=== PATIENT | female | born 1950 | race Caucasian/White ===

== ENCOUNTER 2019-10-12 10:55 | Outpatient (CLI) | payer MEDICARE, OTHER, SELFPAY ==
--- NOTE | ~2019-10-12 | MR_ITS ---
EXAMINATION: MR lumbar spine wo con DATE: 10/12/2019 11:47 INDICATION: Lumbar radiculopathy. TECHNIQUE: Magnetic resonance imaging (MRI) of the lumbar spine was performed without intravenous con trast. Sequences included sagittal T2-weighted FSE, sagittal T2-weighted FS FSE, sagittal T1-weighted FSE, and axial T2-weighted FSE. COMPARISON: Lumbar spine radiographs 04/27/2018 FINDINGS: There is 3 mm retrolisthesis of L2 on L3, L3 on L4, and L4 on L5. Vertebral body heights ar e normal. There is mildly decreased disc height from L2-L3 through L4-L5. The distal spinal cord sign al intensity is normal. The conus medullaris is at L1-L2. The following disc levels are specifically discussed: L1-L2: The disc does not extend beyond the endplate margin. There is mild bilateral facet joint osteo arthritis. There is no neural foraminal stenosis. There is no central canal stenosis. L2-L3: The disc is bulging. There is mild bilateral facet joint osteoarthritis. There is mild bilater al neural foraminal stenosis. There is mild central canal stenosis. L3-L4: The disc is bulging. There is mild bilateral facet joint osteoarthritis. There is mild right a nd moderate left neural foraminal stenosis. There is mild central canal stenosis. L4-L5: The disc is bulging. There is moderate bilateral facet joint osteoarthritis. There is moderate bilateral neural foraminal stenosis. There is mild central canal stenosis. L5-S1: The disc is bulging. There is severe bilateral facet joint osteoarthritis. There is mild bilat eral neural foraminal stenosis. There is no central canal stenosis. IMPRESSION: 1. Moderate lumbar spondylosis. Reviewed, dictated and finalized at location A.
== END 2019-10-12 10:56 | disposition home or self-care (01) ==
PROVIDERS: PCP Family Medicine; Visit Provider Chiropractor
DX: M47.27 Other spondylosis with radiculopathy, lumbosacral region (principal); M47.896 Other spondylosis, lumbar region
CPT/HCPCS: 72148

== ENCOUNTER 2020-01-24 17:27 | Outpatient (CLI) | payer MEDICARE, OTHER, SELFPAY ==
--- NOTE | ~2020-01-24 | XR_ITS ---
EXAMINATION: XR chest 2V EXAM DATE: 01/24/2020 17:49 INDICATION: Cough, shortness of breath. Hypertension. TECHNIQUE: Frontal and lateral projections of the chest obtained and reviewed. Comparison is made to prior examination from 06/05/2013. FINDINGS: The lungs are clear. There are no pleural effusions. The cardiomediastinal silhouette is within normal limits. There is no pneumothorax suspected. The bones and soft tissues are unremarkab le. IMPRESSION: No acute cardiopulmonary findings. Reviewed, dictated and finalized at location A. 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
== END 2020-01-24 17:28 | disposition home or self-care (01) ==
PROVIDERS: PCP Family Medicine; Visit Provider Family Medicine
DX: R05 Cough (principal); R06.02 Shortness of breath; I10 Essential (primary) hypertension
CPT/HCPCS: 71046

== ENCOUNTER 2020-10-14 12:55 | Outpatient (CLI) | payer MEDICARE, OTHER, SELFPAY ==
--- NOTE | ~2020-10-14 | XR_ITS ---
EXAMINATION: XR pelvis min 3V DATE: 10/14/2020 13:12 INDICATION: Sacroiliac joint fusion. TECHNIQUE: 3 views of the pelvis were obtained. COMPARISON: Pelvis radiograph 01/28/2017 FINDINGS: There is 3 degrees dextrocurvature of lumbar spine. There is mild lumbar spondylosis. There is mild osteoarthritis of the hips and left sacroiliac joint. There is a fusion procedure of right s acroiliac joint with 3 implants. IMPRESSION: 1. Right sacroiliac joint arthrodesis. Reviewed, dictated and finalized at location A.
== END 2020-10-14 12:56 | disposition home or self-care (01) ==
LOC: ANHIMG 12:59
PROVIDERS: PCP Family Medicine; Visit Provider Neurological Surgery
DX: Z98.1 Arthrodesis status (principal)
CPT/HCPCS: 72190

== ENCOUNTER 2020-11-13 14:09 | Outpatient (CLI) | payer MEDICARE, OTHER, SELFPAY ==
--- NOTE | ~2020-11-13 | XR_ITS ---
XR ankle RT min 3V DATE: 11/13/2020 14:27 INDICATION: Right ankle pain TECHNIQUE: 4 views COMPARISON: None FINDINGS: No fracture or dislocation of the ankle or disruption of the ankle mortise. No periosteal r eaction or bone destruction. Plantar calcaneal enthesopathy. Small calcifications are noted posterior to the calcaneus. IMPRESSION: Plantar calcaneal enthesopathy Reviewed, dictated and finalized at location A.
== END 2020-11-13 14:10 | disposition home or self-care (01) ==
PROVIDERS: PCP Family Medicine; Visit Provider Physician Assistant
DX: M77.31 Calcaneal spur, right foot (principal)
CPT/HCPCS: 73610

== ENCOUNTER 2021-05-09 11:11 | Outpatient (CLI) | payer MEDICARE, OTHER, SELFPAY ==
--- NOTE | ~2021-05-09 | XR_ITS ---
EXAMINATION: XR pelvis min 3V DATE: 05/09/2021 11:48 INDICATION: Right sacroiliac joint fusion procedure. Postop. TECHNIQUE: 4 views of the pelvis were obtained. COMPARISON: Pelvis radiographs 10/14/20 FINDINGS: There is dextrocurvature and mild spondylosis of lumbar spine. No fracture. There are magaña es of arthrodesis of right sacroiliac joint with 3 implants. No significant lucency to suggest loosen ing. There is mild left sacroiliac joint osteoarthritis. There is mild osteoarthritis of the hips. IMPRESSION: 1. Right sacroiliac joint arthrodesis. Reviewed, dictated and finalized at location A.
== END 2021-05-09 11:12 | disposition home or self-care (01) ==
PROVIDERS: PCP Family Medicine; Visit Provider Neurological Surgery
DX: Z98.1 Arthrodesis status (principal)
CPT/HCPCS: 72190

== ENCOUNTER 2021-06-16 11:19 | Emergency (ER) | payer MEDICARE, OTHER, SELFPAY ==
--- NOTE | ~2021-06-16 | XR_ITS ---
EXAMINATION: XR chest 2V DATE: 06/16/2021 11:55 INDICATION: Cough TECHNIQUE: PA and lateral views of the chest are obtained. COMPARISON: 01/24/2020 FINDINGS: The lungs are free of acute opacities. There is no pleural effusion or pneumothorax. The ca rdiomediastinal silhouette is normal. There is mild thoracic spondylosis. Calcified pulmonary nodules and calcified left hilar and mediastinal lymph nodes are consistent with old granulomatous disease. IMPRESSION: 1. No acute cardiopulmonary abnormality. Reviewed, dictated and finalized at location A.
[2021-06-16 11:30] VITALS: BP 121/102; PULSE 71; RESP 20; TEMP 36.7; O2SAT 98
--- NOTE | 2021-06-16 11:46 | ED.URI ---
HPI - URI/Sore Throat General Chief Complaint: Upper Respiratory Infection Stated Complaint: cough Time Seen by Provider: 06/16/21 11:46 Source: patient Mode of arrival: ambulatory Limitations: no limitations History of Present Illness HPI Narrative: 71-year-old female who presents with complaint of cough for the past 3 to 4 months. Reports that it started with COVID in February and never improved. Did see her PCP and was given an Advair inhaler and cough syrup with codeine. States that cough is worse at night and with activity. Over the last few days cough has increased. Does have coughing fits that cause her to feel short of breath. Called her PCP today for appointment and was not able to see her. She is afebrile. Does take daily allergy medication. Using Advair without relief. She reports that she has never had a chest x-ray since cough for started. All systems reviewed and negative except as noted above. Related Data Home Medications Medication Instructions Recorded Confirmed gabapentin 300 mg capsule 300 mg PO BID 09/09/20 06/16/21 Allergies Allergy/AdvReac Type Severity Reaction Status Date / Time No Known Allergies Allergy Unknown Verified 06/16/21 11:35 Review of Systems Review of Systems: CONSTITUTIONAL: Denies fever, chills, or sweats. EYES: Denies visual changes, redness, or discharge. ENT: Denies rhinorrhea, congestion, sore throat, or otalgia. CARDIOVASCULAR: Denies chest pain, palpitations, or edema. RESPIRATORY: Reports cough and dyspnea with exertion. GASTROINTESTINAL: Denies abdominal pain, nausea, vomiting, or diarrhea. GENITOURINARY: Denies dysuria or hematuria. SKIN: Denies rash or itching. MUSCULOSKELETAL: Denies back pain, joint pain, or myalgia. NEUROLOGIC: Denies headache, numbness, or weakness. PSYCHIATRIC: Denies anxiety or depression. All other systems reviewed are negative, except as documented in HPI. [facility] Past Medical History Medical History COVID-19 Depressive disorder, not elsewhere classified Hypertension Hypothyroidism (acquired) Melanoma of skin, site unspecified Obese Sacroiliac dysfunction Ureteral calculi Surgical History Surgical History H/O arthroscopy of knee Status post right partial knee replacement (~01/03/18) Family History Family History Mother Hypertension COVID-19 Father Hypertension Family history of lung cancer Family history of malignant neoplasm Grandparent Family history of cardiovascular disease Carcinoma of colon Family history of malignant neoplasm of esophagus Sibling Family history of rheumatoid arthritis Family history of obesity Family history of mental disorder Social History Social History (Updated 05/09/21 @ 09:30 by KEERTHI Barrow) Smoking end date: 02/08/95 Alcohol intake: current Gender identity (if verbalized by the patient): Female Comments At time of signature, agree with nursing past medical, surgical, social and family history. There is no relevant family history pertinent to the presenting complaint. Exam Narrative: GENERAL: This is a well-nourished, well-developed patient, in no apparent distress. HEAD: normocephalic, atraumatic. EYES: PERRL. Sclera clear/white. Vision is grossly intact. EARS: External ears normal, auditory canals clear and without drainage, TMs normal without perforation. Hearing grossly intact. NOSE: External nose normal with no obvious nasal discharge, nares without redness, no rhinorrhea. THROAT: Mucous membranes moist, no erythema to posterior pharynx, clear postnasal drainage noted. NECK: Neck supple, non-tender without lymphadenopathy, masses or thyromegaly. CARDIOVASCULAR: Regular rate and rhythm without murmurs, gallops, or rubs. RESPIRATORY: Decreased throughout all lung painter. SKIN: warm,
== END 2021-06-16 12:40 | disposition home or self-care (01) ==
PROVIDERS: Emergency Provider Nurse Practitioner Family; PCP Family Medicine
DX: R05.9 Cough, unspecified (principal); I10 Essential (primary) hypertension; E03.9 Hypothyroidism, unspecified; Z87.891 Personal history of nicotine dependence
CPT/HCPCS: 71046; 99213; G0463

== ENCOUNTER 2021-07-18 08:08 | Outpatient (CLI) | payer MEDICARE, OTHER, SELFPAY ==
--- NOTE | ~2021-07-18 | CT_ITS ---
EXAMINATION: CT diagnostic chest wo con DATE: 07/18/2021 09:52 INDICATION: Chronic cough. Shortness of breath. Covid infection in February. TECHNIQUE: Computed tomography (CT) of the chest was performed without intravenous contrast. Automate d exposure control and iterative reconstruction technique were employed. Exam dose: 239.90 mGy-cm to [place] exam DLP. COMPARISON: 06/26/2021 2 view chest FINDINGS: Heart size is within normal limits. No pericardial or pleural effusion. No thoracic aortic aneurysm. No hilar or mediastinal mass lesion or lymphadenopathy. There are calcif ied left hilar and mediastinal nodes and calcified left upper lobe pulmonary granulomas, consistent w ith old pulmonary granulomatous disease. No pulmonary infiltrate or consolidation or pulmonary mass lesion is detected. Occasional hepatic and splenic calcified pulmonary granulomas. There are multiple gallstones. No pericholecystic fluid or fat stranding. Normal morphology of the adrenal glands. 3 mm nonobstructing left renal calculus. No suspicious osteolytic or osteoblastic lesions. Degenerative spurring of the thoracic spine. IMPRESSION: Old granulomatous disease Cholelithiasis 3 mm nonobstructing left renal calculus Reviewed, dictated and finalized at Location A. Reviewed, dictated and finalized at location A.
--- NOTE | 2021-07-18 13:26 | WPDSIXMINUTE ---
Six Minute Walk Procedure Procedure Performed Pulmonary Stress Test (6 min walk) Six Minute Walk Six Minute Walk: This 6 minute walk test was carried out with the patient breathing ambient air. The pre walk oxyhemoglobin saturation was 91%. The patient walked over 396 m with no stops during testing. During the walk the oxyhemoglobin saturation remained 92% or higher. The perceived dyspnea on the Colin scale was 2 at baseline and increased to 4 at the end of the testing. Impression: No evidence of oxyhemoglobin desaturation on this testing.
--- NOTE | 2021-07-18 13:28 | WPDPFTINT ---
PFT Procedure Performed PFT Procedure Performed Spirometry with Pre/Post Bronchodilator Plethysmography (Lung Vol) Diffusing Cap (DLCO) Flow Vol Loop PFT Interpretation Lung volumes were measured with the body plethysmography method. The diminished lung volumes are indicative of mild restrictive respiratory disease. Spirometry showed normal expiratory flow rates and a normal FEV1 to FVC ratio of 80%. Following administration of a bronchodilator there was no significant increase in expiratory flow rates. The flow volume loop is unremarkable. Lung diffusion capacity is normal at 77% predicted. Overall the pulmonary function testing is compatible with obesity. Clinical correlation advised. Impression: Mild restrictive respiratory disease. Lung diffusion capacity within the normal range.
== END 2021-07-18 08:09 | disposition home or self-care (01) ==
PROVIDERS: PCP Family Medicine; Visit Provider Nurse Practitioner Family
DX: R06.02 Shortness of breath (principal); R05.3 Chronic cough; Z86.16 Personal history of COVID-19; K80.20 Calculus of gallbladder without cholecystitis without obstruction; N20.0 Calculus of kidney; R91.8 Other nonspecific abnormal finding of lung field; J98.9 Respiratory disorder, unspecified
CPT/HCPCS: 71250; 94060; 94618; 94726; 94729

== ENCOUNTER 2022-03-11 17:31 | Outpatient (CLI) | payer MEDICARE, SELFPAY ==
--- NOTE | ~2022-03-11 | XR_ITS ---
AP view of the pelvis and AP and lateral views of the right hip Clinical history: Pain COMPARISON: 05/09/2021 Findings: No acute fracture or dislocation is seen. Stable orthopedic hardware traversing the right S I joint. Osseous alignment is anatomic. Bilateral hip and SI joint spaces are preserved. Soft tissues are unremarkable. Impression: No acute abnormality is seen. Stable orthopedic hardware traversing the right SI joint. Reviewed, dictated and finalized at location M. CIDE DETECTIVE Impression: No acute abnormality is seen. Stable orthopedic hardware traversing the right SI joint.
== END 2022-03-11 17:32 | disposition home or self-care (01) ==
PROVIDERS: PCP Family Medicine; Visit Provider Family Medicine
DX: M25.551 Pain in right hip (principal); M53.3 Sacrococcygeal disorders, not elsewhere classified; W19.XXXA Unspecified fall, initial encounter
CPT/HCPCS: 73502

== ENCOUNTER 2023-03-02 13:24 | Outpatient (CLI) | payer MEDICARE, SELFPAY ==
--- NOTE | 2023-03-02 13:39 | ECG_ITS ---
Measurements Intervals Bradley Rate: 59 P: 50 DE: 182 QRS: -15 QRSD: 90 T: 38 QT: 429 QTc: 427 Interpretive Statements SINUS BRADYCARDIA ATRIAL PREMATURE COMPLEX LOW QRS VOLTAGE IN PRECORDIAL LEADS INFERIOR INFARCT, AGE INDETERMINATE ANTEROLATERAL INFARCT, AGE INDETERMINATE BASELINE ARTIFACT- I, III, AVR, AVL ABNORMAL ECG NO PREVIOUS ECG AVAILABLE FOR COMPARISON Electronically Signed On 03-02-2023 13:54:40 [facility] by Valdemar Griffin D.O.
[2023-03-02 14:36] LABS: Alanine Aminotransferase 17 U/L (6-35); Albumin Level 4.5 g/dL (3.5-5.1); Alkaline Phosphatase 53 U/L (38-126); Amylase 99 U/L (30-110); Anion Gap 10 mmol/L (8-16); Aspartate Amino Transferase 24 U/L (14-36); Blood Urea Nitrogen 19 mg/dL (7-17); Carbon Dioxide 30 mmol/L (22-30); Chloride 97 mmol/L (98-107); Estimated Glomerular Filt Rate 54; Glucose 119 mg/dL (65-110); Lipase 83 U/L (23-300); Potassium 3.5 mmol/L (3.4-5.0); Sodium 137 mmol/L (137-145)
== END 2023-03-02 13:25 | disposition home or self-care (01) ==
LOC: ANHSURGERY 13:26
PROVIDERS: Anesthesiology; PCP Family Medicine; Visit Provider Surgery
DX: K80.10 Calculus of gallbladder with chronic cholecystitis without obstruction (principal); Z79.899 Other long term (current) drug therapy; I10 Essential (primary) hypertension; Z01.818 Encounter for other preprocedural examination; R94.31 Abnormal electrocardiogram [ECG] [EKG]
CPT/HCPCS: 36415; 80048; 80076; 82150; 83690; 93005

== ENCOUNTER 2023-03-08 02:16 | Day surgery (SDC) | payer MEDICARE, SELFPAY ==
[2023-02-24 15:04] VITALS: BMI 38.1
--- NOTE | 2023-02-24 15:15 | PC.NURSE ---
PRE-OP INSTRUCTIONS, PLEASE READ CAREFULLY Report to the Outpatient Waiting Room, entrance under the green pavilion located off [facility], at time _1000_ on date _03/08/23_. Planned Procedure Time: _1200_. Time changes happen often and if your time is changed the preop area will call you the afternoon before. - You and your visitor will be asked to self-screen and do not enter if you have any COVID symptoms. - A mask is optional within the hospital at this time. Patients may have clear liquids (water, carbonated beverages, clear teas, apple juice) until 3 hours prior to surgery (0900 AM) with a maximum of 20 ounces. - No food from midnight until time of surgery Take the following medications with a SIP of water the morning of surgery: _LEVOTHYROXINE_ DO NOT STOP ANY OF YOUR OTHER PRESCRIPTION MEDICATIONS PRIOR TO SURGERY ?EXCEPT THE FOLLOWING Medications to discontinue per physician NONE , Date to take last dose Please no make-up, nail bengali, hairspray, perfume, deodorant, or body powder the day of surgery. No jewelry (including any body piercings) or valuables the day of surgery, leave them at home. Please take a shower or bath the night before, or the morning of, surgery with an antibacterial soap. Wear comfortable, loose fitting clothing. - Jewelry must be removed prior to entering the operating room. Rings and piercings that are not removed may be cut off. - The hospital will not accept responsibility for valuables. - Please leave all valuables, including medications, at home the day of surgery. If you are going home after surgery, a licensed pick up driver must drive you home. - NO public transportation without another adult if you receive anesthesia. - We recommend that an adult stay with you for 24 hours following discharge. - We also recommend that you do not drive, make important decision, drink alcoholic beverages, or take any drugs that were not prescribed by your health care provider for at least 24 hours after your discharge time. Follow any additional instructions given to you from your surgeon. If you or anyone in your household have experienced Covid symptoms in the past week, please notify your surgeon or the nurse liaison at the phone number below for possible testing. Telephone instructions given to _PATIENT_and asked if any additional questions and then verbalized understanding. Patient advised to call surgeon office or pre surgery nurse liaison [phone] if any additional questions.
[2023-03-08] VITALS (12 sets, daily range): BP systolic 97–127; BP diastolic 47–75; PULSE 51–96; RESP 14–20; TEMP 36.1–36.8; O2SAT 94–100
[2023-03-08] MEDS: ACETAMINOPHEN 500 MG TABLET 1000 MG PO (10:30)
[2023-03-08] MEDS: LACTATED RINGERS 1,000 ML 30 ML IV CONT ×2 (10:30→13:07)
[2023-03-08] MEDS: KETOROLAC 15 MG/ML VIAL (*BKC) IV PUSH (10:30)
--- NOTE | 2023-03-08 10:37 | WPDHPUPDATE1 ---
History and Physical Update Update Date/Time: 03/08/23 10:37 History and Physical has been reviewed, including an updated exam of the patient. There are NO changes in the patient's condition. Risks, benefits, and alternatives have been discussed and questions answered. Patient agrees to proceed with procedure.
--- NOTE | 2023-03-08 10:51 | WPDANESEPPF ---
Anes - Initial Pre Proc Eval Procedure: Operation Date: 03/08/23 12:00 Proposed Procedures p Laparoscopic Cholecystectomy - Sheila Wolf MD Date/Time: 03/08/23 10:51 Surgeon: Sheila Wolf MD Pre Op Diagnosis: chronic calculous cholecystitis Patient Data Age: 73 Gender: F Height: 1.6 m Weight: 97.72 kg Allergies Allergy/AdvReac Type Severity Reaction Status Date / Time No Known Allergies Allergy Unknown Verified 02/24/23 15:02 Home Medications Medication Instructions Recorded Confirmed Type losartan 50 mg-hydrochlorothiazide 1 tablet PO DAILY #90 tabs 11/12/22 02/24/23 Rx 12.5 mg tablet trazodone 50 mg tablet 50 mg PO QHS #90 tabs 11/16/22 02/24/23 Rx levothyroxine 50 mcg tablet 50 mcg PO DAILY #90 tabs 12/21/22 02/24/23 Rx (Synthroid) omeprazole 40 mg capsule,delayed 40 mg PO DAILY #90 caps 01/22/23 02/24/23 Rx release sucralfate 1 gram tablet (Carafate) 1 g PO Q4H PRN abdominal pain #90 01/22/23 02/24/23 Rx tabs escitalopram oxalate 10 mg tablet See Rx Instructions .Route 02/10/23 02/24/23 Rx .COMPLEX #90 tabs Patient hx anesthesia problems: none Family hx anesthesia problems: none Results Review: All pre-operative results and documents have been reviewed as part of the pre-operative evaluation. [facility] Past Medical History Medical History Cancer COVID-19 Depressive disorder, not elsewhere classified Hypertension Hypothyroidism (acquired) Kidney stones Melanoma of skin, site unspecified Obese Prediabetes Sacroiliac dysfunction Ureteral calculi Surgical History Surgical History H/O arthroscopy of knee S/P fusion of sacroiliac joint Status post right partial knee replacement (~01/03/18) Family History Family History Mother Hypertension COVID-19 Father Hypertension Family history of lung cancer Family history of malignant neoplasm Grandparent Family history of cardiovascular disease Carcinoma of colon Family history of malignant neoplasm of esophagus Depression Sibling Family history of rheumatoid arthritis Family history of obesity Family history of mental disorder COVID-19 Sibling COVID-19 Social History Social History Smoking packs per day: 0.5 Smoking cigarettes per day: 10.0 Years smoked: 25 Smoking pack-years: 12.50 Smoking status: Former smoker Tobacco type: cigarettes Second hand tobacco smoke exposure: No Smoking end date: 02/08/95 Alcohol intake: current Drinks per week: 1 Alcohol use details: BEER Substance use: never Substance use type: does not use Lack of Transportation: No Lack of Food: Never True Current Housing: I Have Housing Concerned About Future Housing: No Difficulty Paying Gas/Electric Bills: No Difficulty Paying for Meds: No Currently Unemployed: No Education: Trade/Vocational Certificate Difficulty w/ Childcare or Family Care: No Living arrangements: with family Gender identity (if verbalized by the patient): Female Spiritual care concerns: No Anes - Eval Final PreProcedure Day of Procedure 03/08/23 10:51 Patient weight: obese Heart: regular rate and rhythm Lungs: clear to auscultation Airway: Mallampati scale class II Neurological: alert and oriented Last oral intake: >/= 8 hours ASA classification: III Emergent: no Anesthetic plan: proceed Anesthesia type and monitoring: general ETT and standard monitoring Results Review: All pre-operative results and documents have been reviewed as part of the pre-operative evaluation. Informed Consent: The patient's anesthetic plan and its attendant risks and benefits were discussed with the patient/family/POA. Questions were solicited and answe
[2023-03-08] MEDS: ceFAZolin 2 GM/D5W 50 ML 2 GM/50 ML BAG IVPB (12:05)
[2023-03-08] MEDS: BUPIVACAINE/EPINEPHRINE 0.5% 30 ML VIAL INFILTRATE (12:44)
--- NOTE | 2023-03-08 13:12 | W.PM.PROC2 ---
Procedure Note - Detailed Date of Procedure 03/08/23 Pre-op Diagnosis chronic calculous cholecystitis Post-op Diagnosis Same Procedure Performed Laparoscopic cholecystectomy Surgeon Sheila Wolf MD Anesthesia General Indications 73-year-old female presented to the office complaining of postprandial right upper quadrant abdominal pain associated with nausea and vomiting. Workup including imaging significant for cholecystitis, cholelithiasis. Findings Cholecystitis with cholelithiasis Description of Procedure The patient was taken to the operating room placed in the supine position. After adequate induction of general anesthesia, the patient was prepped and draped in normal sterile fashion. A time-out was then performed to verify the patient's identity as well as the procedure being performed. I then made a 5 mm incision in the infraumbilical region. Through this, a Veress needle was placed into the peritoneal cavity and CO2 gas was then insufflated. After adequate pneumoperitoneum was achieved, the Veress needle was removed and a 5 mm optiview trocar was placed through this incision under direct visualization. I then placed the laparoscope through this trocar site and under direct visualization placed a further 12 mm subxiphoid port as well as 2 additional 5 mm ports in the right upper abdomen. The gallbladder was then identified and was noted to be moderately inflamed, distended, and full of gallstones. I was able to place a grasper at the dome of the gallbladder and this was retracted anterior and cephalad up over the liver. A 2nd retractor was then placed at the infundibulum and retracted laterally, this allowed visualization of the triangle of Calot. I then was able to visualize the cystic duct in its entirety from its proximal insertion into the gallbladder, to its distal junction with the common hepatic/common bile duct junction. At this point, I carefully skeletonized the proximal cystic duct with the [place] dissector. I then clipped and transected the proximal cystic duct. Next I visualized the cystic artery. Again the artery was skeletonized, clipped, and transected. I then used the Bovie cautery to take down the peritoneal attachments of the gallbladder off the liver bed. This was somewhat difficult given the amount of inflammation in the posterior space. Once the gallbladder specimen was completely detached, an endo-pouch was placed through the 12 mm port site. I then placed the gallbladder specimen into the Endo pouch and removed the endo-pouch from the 12 mm port site. , the incision site in the epigastrium had to be almost doubled in size to allow extraction of this massively distended gallbladder. There was also noted to be some very large gallstones. The specimen will now be sent to pathology for further review. I then copiously irrigated the right upper quadrant. Hemostasis was noted in the liver bed, the clips were noted to be in good position on both the cystic duct stump and the cystic artery stump. No other pathology was noted in the right upper quadrant. I then moved the laparoscope to the subxiphoid port. No iatrogenic injury or other pathology was noted in the lower abdomen. I then closed the epigastric trocar site under direct visualization using 0 Vicryl suture. All port sites were then closed with 4.O Monocryl subcuticular sutures. Dermabond was placed on each incision. The patient tolerated the procedure well, was extubated in the operating room postoperative and will be transferred to the recovery room in stable condition Estimated Blood Loss 5 Drains No Packing No Pathology Yes Complications No immediate complications Condition Stable Disposition PACU [facility] Billing Surgery - Charge Forward: Surgery Billing
[2023-03-08] MEDS: fentaNYL CITRATE INJ (*CRX) 100 MCG/2 ML VIAL 25 MCG IV PUSH ×4 (13:33→15:30)
== END 2023-03-08 15:55 | disposition home or self-care (01) ==
PROVIDERS: PCP Family Medicine; Visit Provider Surgery
PROC: 0FT44ZZ Resection of Gallbladder, Percutaneous Endoscopic Approach (ICD-10-PCS; CPT 47562; principal; 2023-03-08 12:00)
DX: K80.10 Calculus of gallbladder with chronic cholecystitis without obstruction (principal); I10 Essential (primary) hypertension; F32.A Depression, unspecified; E03.9 Hypothyroidism, unspecified; R73.03 Prediabetes; E66.9 Obesity, unspecified; Z68.37 Body mass index [BMI] 37.0-37.9, adult; Z98.890 Other specified postprocedural states; Z87.891 Personal history of nicotine dependence; Z85.828 Personal history of other malignant neoplasm of skin; Z82.49 Family history of ischemic heart disease and other diseases of the circulatory system; Z80.1 Family history of malignant neoplasm of trachea, bronchus and lung; Z80.0 Family history of malignant neoplasm of digestive organs
CPT/HCPCS: 47562; 36415; 80048; 80076; 82150; 83690; 88304; 93005; A9270; J0690; J1100; J1596; J1885; J2405; J2704; J2710; J3010; J7030; J7120

== ENCOUNTER 2023-10-26 11:58 | Outpatient (CLI) | payer MEDICARE, SELFPAY ==
--- NOTE | ~2023-10-26 | MR_ITS ---
EXAMINATION: MR lumbar spine wo con DATE: 10/26/2023 12:33 INDICATION: Lumbar spinal stenosis. TECHNIQUE: Magnetic resonance imaging (MRI) of the lumbar spine was performed without intravenous con trast. Sequences included sagittal T2-weighted FSE, sagittal T2-weighted FS FSE, sagittal T1-weighted FSE, and axial T2-weighted FSE. COMPARISON: Lumbar spine MRI 10/12/2019 FINDINGS: There is 7 degrees dextrocurvature of lumbar spine. There is 3 mm retrolisthesis of L2 on L 3 and L3 on L4. Vertebral body heights are normal. There is mildly decreased disc height at L2-L3, L3 -L4, and L4-L5. The distal spinal cord signal intensity is normal. The conus medullaris is at L1. The re are changes of fusion procedure of right sacroiliac joint. The following disc levels are specifica lly discussed: L1-L2: The disc does not extend beyond the endplate margin. There is mild bilateral facet joint osteo arthritis. There is no neural foraminal stenosis. There is no central canal stenosis. L2-L3: The disc is bulging. There is moderate bilateral facet joint osteoarthritis. There is mild rig ht and moderate left neural foraminal stenosis. There is mild central canal stenosis. L3-L4: The disc is bulging. There is moderate bilateral facet joint osteoarthritis. There is mild rig ht and moderate left neural foraminal stenosis. There is mild central canal stenosis. L4-L5: The disc is bulging and has an annular fissure. There is severe bilateral facet joint osteoart hritis. There is moderate right and mild left neural foraminal stenosis. There is mild central canal stenosis. L5-S1: The disc does not extend beyond the endplate margin. There is severe bilateral facet joint ost eoarthritis. There is mild bilateral neural foraminal stenosis. There is no central canal stenosis. IMPRESSION: 1. Moderate lumbar spondylosis, stable from 10/12/2019. Reviewed, dictated and finalized at location A.
== END 2023-10-26 11:59 | disposition home or self-care (01) ==
LOC: ANHIMG 12:04
PROVIDERS: PCP Family Medicine; Visit Provider Neurological Surgery
DX: M48.061 Spinal stenosis, lumbar region without neurogenic claudication (principal); M47.896 Other spondylosis, lumbar region
CPT/HCPCS: 72148

== ENCOUNTER 2024-06-21 09:41 | Outpatient (CLI) | payer MEDICARE, SELFPAY ==
--- NOTE | ~2024-06-21 | MM_ITS ---
EXAMINATION: MM screening wisam BI w winsome HISTORY: Screening TECHNIQUE: Craniocaudal and mediolateral oblique 3-D tomosynthesis images were obtained and synthetic 2-D images were generated. CAD analysis was submitted and interpreted. COMPARISON: 06/07/2018 BREAST PARENCHYMAL COMPOSITION: Not dense: There are scattered areas of fibroglandular density. FINDINGS: There is no evidence of suspicious mass, calcification, or architectural distortion to sugg est malignancy in either breast. There has been no suspicious interval change. IMPRESSION: 1. No mammographic evidence of malignancy. 2. Recommend routine screening mammography in one year. BI-RADS Category 1: Negative Reviewed, dictated and finalized at location A.
--- OUTSIDE RECORDS SUMMARY | 2024-06-21 09:52 | XMS_ITS | Encounter Summary ---
Author Organization [facility] Address 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
--- OUTSIDE RECORDS SUMMARY | 2024-06-21 09:52 | XMS_ITS | Encounter Summary ---
Author Organization [facility] Address [address] [place] [address] Care Team Providers Care Casting Carrier Name Role Phone Pedro Hernandez MD Primary Care Provider +1- [phone] Encounter Details Date Type Department Care Team (Late st Contact Info) Description 11/24/2018 Lab Requisition [facility] [address] [facility] [place] [address] Radha Navarrete MD [address] [facility] [address] [place] [address] Social History Tobacco Use Types Packs/Day Years Used Date Smoking Tobacco: Former Alcohol Use Standard Drinks/Week Comments Yes 0 (1 standard drink = 0.6 oz pur e alcohol) Comments Unknown Sex and Gender Information Value Date Recorded Sex Assigned at Not on file 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 Gender Identity Not on file Sexual Orientation Not on file documented as of this encounter Plan of Treatment Not on file documented as of this encounter Procedures Procedure Name Priority Date/Time Associated Diagnosis Comments DERMATOPATH TECHNICAL REPORT Routine 11/24/2018 12:00 AM CDT documented in this encounter Results * DERMATOPATH TECHNICAL REPORT (11/24/2018 12:00 AM CDT) Case Report Dermatopathology Report Case: [id number] Authorizing Provider: Radha Navarrete MD Collected: 11/24/2018 12:00 AM Ordering Location: [facility] Received: 11/24/2018 11:32 AM Pathologist: Lavon Dan MD Specimen: Skin, right back 4:52 PM CDT DERMATOPATHOLOGY LABORATORY Addendum 2 At the request of the diagnosing physician, the technical component for HMB-45 was performed by [facility] Dermatopathology Laboratory. 4:52 PM CDT DERMATOPATHOLOGY LABORATORY Addendum electronically signed by Lavon Dan MD on 12/01/2018 at 4:52 PM Addendum 1 At the request of the diagnosing physician, the technical component for MART-1/Melan A was performed by [facility] Dermatopathology Laboratory. 4:52 PM CDT DERMATOPATHOLOGY LABORATORY Addendum electronically signed by Lavon Dan MD on 11/29/2018 at 5:55 PM Clinical History LPLK vs BCC. Independence scaly papule. 4:52 PM CDT DERMATOPATHOLOGY LABORATORY Gross Description Specimen A: Received is one formalin filled container labeled with the patient's name and designated right back. The specimen consists of a shave measuring [id number]. Jar 0. [facility]ermat[facility] performed the technical component only. 4:52 PM CDT DERMATOPATHOLOGY LABORATORY Embedded Images 4:52 PM T DERMATOPATHOLOGY LABORATORY DISCLAIMER An external and internal positive and negative controls are appropriate for the histochemical, immunohistochemical and immunofluorescence stain(s) in this case (if any), except where stated explicitly. The performance characteristics of the stain(s) cited in this report were developed and its performance characteristic determined by the Dermatopathology Laboratory at [facility], directed by Dr. Rebeca Dan. These tests need not be, and therefore are not, approved by the [place] Food and Drug Administration. The tests are used for clinical purposes. 4:52 PM T DERMATOPATHOLOGY LABORATORY Pathology/Cytolog y TISSUE SPECIMEN FROM SKIN / Unknown 11/24/2018 11/24/2018 11:32 AM CDT us Radha Navarrete MD LAB - PATHOLOGY/CYTOLOGY ORD ERABLES Edited Result - Final DERMATOPATHOLOGY LABORATORY [facility] - Department of Dermatology [address] [place] [address], 5th Floor Lab [address] [phone] documented in this encounter Visit Diagnoses Not on filedocumented in this encounter Care Teams Casting Carrier Relationship Specialty Start Date End Date Pedro Hernandez MD [address] [place] [phone] PCP - General 04/30/14 documented as of this encounter
--- OUTSIDE RECORDS SUMMARY | 2024-06-21 09:52 | XMS_ITS | Continuity of Care Document ---
Author Organization [facility] Address [address] [place] [address] [address] [place] [address] Phone Care Team Providers Care Filter Tank Tender Helper Head Name Role Phone Agee OD, Bogdan Unavailable Unavailable Advance Directives Directive Yes / No Effective Date File Name No Information Encounters Encounter Description Practice Location Reason(s) For Visit Diagnoses Date Provider Providers Copied on Encounter [facility], [address] [place], [place], [id number], [place] tel:[phone] [facility] No Information Mar-0 9-200 0 Agee OD Bogdan. [address] , [address], [place], [address], [place]. tel:[phone] Family History Family Member Type Diagnosis Age [...]
--- OUTSIDE RECORDS SUMMARY | 2024-06-21 09:52 | XMS_ITS | Encounter Summary ---
Author Organization [facility] Address 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
--- OUTSIDE RECORDS SUMMARY | 2024-06-21 09:52 | XMS_ITS | Patient Health Record ---
Author Organization [facility] Address [address] [place] [address] [place] [address] Care Team Providers Care Security Specialist Name Role Phone ARMANDO SYLVESTER, RAMAKRISHNA Primary Care Provider Marck Chambers Unavailable [phone] MD CANDI, PAULY Unavailable Unavailable ALLERGIES No Known Allergies REASON FOR REFERRAL No Information MEDICATIONS Medication SIG (Take, Route, Frequency, Duration) Notes Start Date End Date Status Breo Ellipta 200-25 MCG/ACT Inhalation for 30 Active Zolpidem Tartrate 10 MG TAKE 1 TABLET BY MOUTH EVERY DAY AT BEDTIME Oral for 90 Active metFORMIN HCl ER 500 MG TAKE 1 TABLET BY MOUTH DAILY Oral for 90 Active Escitalopram Oxalate 10 MG TAKE 1 TABLET BY MOUTH DAILY AT BEDTIME Oral for 90 Active traZODone HCl 50 MG TAKE 1 TABLET BY JONNY TH EVERY DAY AT BEDTIME Oral for 90 Active Levothyroxine Sodium 50 MCG Oral for 90 Active Losartan Potassium-HCTZ 50-12.5 MG Oral for 90 Active Aleve 220 MG 1 tablet with food o r milk as needed Orally every 12 hrs Active SOCIAL HISTORY Tobacco Use: Social History Observation Description Date Details (start date - stop date) Former Smoker NA - NA Sex Assigned At : Social History Observation Description Sex Assigned At Unknown Tobacco Use/Smoking Question Answer Notes Are you a former smoker How long has it been since you last smoked? > 10 years PROBLEMS Problem Type ICD Code Onset Dates Problem Status W/U Status Risk SNOMED Code Notes Problem Sacroiliitis, not elsewhere classified (M46.1) Active confirmed Solitary sacroiliitis (723519680) Problem Radiculopathy, lumbar region (M54.16) Active confirmed Lumbar radiculopathy (908413522) Problem Sciatica, unspecified side (M54.30) Active confirmed Sciatica (29809388) Problem Sciatica, right side (M54.31) Active confirmed Right side sciatica (138654176450684 ) Problem Sciatica, left side (M54.32) Active confirmed Left side sciatica (118841642352236 ) Problem Osseous stenosis of neural canal of lumbar region (M99.33) Active confirmed Spinal stenosis of lumbar region (37411810) Problem Other intervertebral disc degeneration, 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) Active confirmed VITAL SIGNS Heart Rate 65 /min 05/22/2024 Respiratory Rate 18 /min 05/22/2024 Blood pressure diastolic 73 mm Hg 05/22/2024 Height 5 ft 2 in in 05/22/2024 Blood pressure systolic 148 mm Hg 05/22/2024 Weight 208 lbs 05/22/2024 BMI 38.04 kg/m2 05/22/2024 Encounters Encounter Location Date Provider Diagnosis [facility] [address] [place] [id number] 11/22/2023 Marck Stynowick Radiculopathy, lumba r region M54.16 ; Other intervertebral disc degeneration, lumbar region with discogenic back pain and lower extremity pain M51.362 ; Osseous stenosis of neural canal of lumbar region M99.33 and Sacroiliitis, not elsewhere classified M46.1 [facility] [address] [place] [address] 11/29/2023 Marck Stynowick Radiculopathy, lumba r region M54.16 ; Other intervertebral disc degeneration, lumbar region with discogenic back pain and lower extremity pain M51.362 and Osseous stenosis of neural canal of lumbar region M99.33 [facility] [address] [facility] [place] [address] 12/16/2023 Marck Stynowick Radiculopathy, lumba r region M54.16 ; Other intervertebral disc degeneration, lumbar region with discogenic back pain and lower extremity pain M51.362 ; Osseous stenosis of neural canal of lumbar region M99.33 and Sacroiliitis, not elsewhere classified M46.1 [facility] [address] [place] [address] [place] [address] 01/13/2024 Marck Stynowick Radiculopathy, lumba r region M54.16 ; Sciatica, right side M54.31 ; Other intervertebral disc degeneration, lumbar region with discogenic back pain and lower extremity pain M51.362 ; Osseous stenosis of neural canal of lumbar region M99.33 and Sacroiliitis, not elsewhere classified M46.1 [facility] [address] [place] [address] [place] [address] 01/17/2024 Marck Stynowick Sciatica, right side M54.31 [facility] [address] [place] [address] [place] [address] 02/03/2024 Marck Stynowick Radiculopathy, lumba r region M54.16 ; Other intervertebral disc degeneration, lumbar region with discogenic back pain and lower extremity pain M51.362 ; Osseous stenosis of neural canal of lumbar region M99.33 ; Sacroiliitis, not elsewhere classified M46.1 and care home (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 of non-steroidal anti-inflammatories (NSAID) Z79.1 [facility] [address] [place] [address] [place] [address] 03/13/2024 Marck Stynowick Radiculopathy, lumba r region M54.16 [facility] [address] [place] [address] [place] [address] 04/26/2024 Marck Stynowick Radiculopathy, lumba r region M54.16 ; Other intervertebral disc degeneration, lumbar region with discogenic back pain and lower extremity pain M51.362 ; Osseous stenosis of neural canal of lumbar region M99.33 ; Sacroiliitis, not elsewhere classified M46.1 and 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 treater (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 of non-steroidal anti-inflammatories (NSAID) Z79.1 [facility] [address] [place] [address] [place] [address] 05/01/2024 Marck Stynowick Radiculopathy, lumba r region M54.16 ; Other intervertebral disc degeneration, lumbar region with discogenic back pain and lower extremity pain M51.362 and Osseous stenosis of neural canal of lumbar region M99.33 [facility] [address] [place] [address] [place] [address] 05/16/2024 Marck Stynowick Radiculopathy, lumba r region M54.16 ; Sciatica, right side M54.31 ; Other intervertebral disc degeneration, lumbar region with discogenic back pain and lower extremity pain M51.362 ; Osseous stenosis of neural canal of lumbar region M99.33 ; Sacroiliitis, not elsewhere classified M46.1 and care home (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 of non-steroidal anti-inflammatories (NSAID) Z79.1 [facility] [address] [place] [address] 05/22/2024 Marck Stynowick Sciatica, right side M54.31 [facility] [address] [place] [place] [address] 05/29/2024 Marck Stynowick Radiculopathy, lumba r region M54.16 ; Sciatica, right side M54.31 ; Other intervertebral disc degeneration, lumbar region with discogenic back pain and lower extremity pain M51.362 ; Osseous stenosis of neural canal of lumbar region M99.33 ; Sacroiliitis, not elsewhere classified M46.1 and care home (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 of non-steroidal anti-inflammatories (NSAID) Z79.1 ASSESSMENTS Encounter Date Diagnosis Assessment Notes Treatment Notes Treatment Clinical Notes 11/22/2023 Radiculopathy, lumbar region (ICD-10 - M54.16) Schedule a right L3-4 + L4-5 (Right L3 + L4 SNRB) transforaminal epidural steroid injection. The risks of this procedure including pain, bleeding, infection, spinal headache, persistent spinal fluid leak, epidural hematoma, nerve damage, spinal cord injury, paralysis, total spinal anesthesia resulting in cardiopulmonary arrest/, respiratory distress requiring intubation, insomnia, hyperglycemia, hair loss, muscle atrophy, skin depigmentation, weight gain, fluid retention, adrenal suppression, immunosuppression, osteoporosis resulting in fractures, avascular necrosis of the hip, cataracts, bleeding gastric ulcer, worsening pain and failure to relieve pain were discussed and the patient is agreeable to proceeding at this time. 11/22/2023 Other intervertebral disc degeneration, lumbar region with discogenic back pain and lower extremity pain (ICD-10 - M51.362) 11/29/2023 Radiculopathy, lumbar region (ICD-10 - M54.16) 11/29/2023 Other intervertebral disc degeneration, lumbar region with discogenic back pain and lower extremity pain (ICD-10 - M51.362) 12/16/2023 Radiculopathy, lumbar region (ICD-10 - M54.16) Patient recently underwent right L3-4 & L4-5 TFE done on 11/29/23 and reports a 95% reduction of her low back and lower extremity pain since this procedure.She currently denies a need for any injections or interventions at this time. She would like to return to the office in 1 month for follow-up and reevaluation of her pain at that time. 12/16/2023 Other intervertebral disc degeneration, lumbar region with discogenic back pain and lower extremity pain (ICD-10 - M51.362) 01/13/2024 Radiculopathy, lumbar region (ICD-10 - M54.16) 01/13/2024 Sciatica, right side (ICD-10 - M54.31) Schedule a right sciatic nerve block injection (at piriformis). The risks of this procedure including pain, bleeding, infection, nerve damage, insomnia, hyperglycemia, hair loss, muscle atrophy, skin depigmentation, weight gain, fluid retention, adrenal suppression, immunosuppression, osteoporosis resulting in fractures, avascular necrosis of the hip, cataracts, bleeding gastric ulcer, worsening pain and failure to relieve pain were discussed and the patient is agreeable to proceeding at this time. 01/17/2024 Sciatica, right side (ICD-10 - M54.31) 02/03/2024 Radiculopathy, lumbar region (ICD-10 - M54.16) Schedule a right L3-4 and L4-5 transforaminal epidural steroid injection. The risks of this procedure including pain, bleeding, infection, spinal headache, persistent spinal fluid leak, epidural hematoma, nerve damage, spinal cord injury, paralysis, total spinal anesthesia resulting in cardiopulmonary arrest/, respiratory distress requiring intubation, insomnia, hyperglycemia, hair loss, muscle atrophy, skin depigmentation, weight gain, fluid retention, adrenal suppression, immunosuppression, osteoporosis resulting in fractures, avascular necrosis of the hip, cataracts, bleeding gastric ulcer, worsening pain and failure to relieve pain were discussed and the patient is agreeable to proceeding at this time. 02/03/2024 Other intervertebral disc degeneration, lumbar region with discogenic back pain and lower extremity pain (ICD-10 - M51.362) 03/13/2024 Radiculopathy, lumbar region (ICD-10 - M54.16) 04/26/2024 Radiculopathy, lumbar region (ICD-10 - M54.16) Schedule a right L3-4 and L4-5 transforaminal epidural steroid injection. The risks of this procedure including pain, bleeding, infection, spinal headache, persistent spinal fluid leak, epidural hematoma, nerve damage, spinal cord injury, paralysis, total spinal anesthesia resulting in cardiopulmonary arrest/, respiratory distress requiring intubation, insomnia, hyperglycemia, hair loss, muscle atrophy, skin depigmentation, weight gain, fluid retention, adrenal suppression, immunosuppression, osteoporosis resulting in fractures, avascular necrosis of the hip, cataracts, bleeding gastric ulcer, worsening pain and failure to relieve pain were discussed and the patient is agreeable to proceeding at this time. 04/26/2024 Other intervertebral disc degeneration, lumbar region with discogenic back pain and lower extremity pain (ICD-10 - M51.362) 05/01/2024 Radiculopathy, lumbar region (ICD-10 - M54.16) 05/16/2024 Radiculopathy, lumbar region (ICD-10 - M54.16) 05/16/2024 Sciatica, right side (ICD-10 - M54.31) Schedule a right sciatic nerve block injection (at piriformis). The risks of this procedure including pain, bleeding, infection, nerve damage, insomnia, hyperglycemia, hair loss, muscle atrophy, skin depigmentation, weight gain, fluid retention, adrenal suppression, immunosuppression, osteoporosis resulting in fractures, avascular necrosis of the hip, cataracts, bleeding gastric ulcer, worsening pain and failure to relieve pain were discussed and the patient is agreeable to proceeding at this time. 05/01/2024 Other intervertebral disc degeneration, lumbar region with discogenic back pain and lower extremity pain (ICD-10 - M51.362) 05/22/2024 Sciatica, right side (ICD-10 - M54.31) 05/29/2024 Radiculopathy, lumbar region (ICD-10 - M54.16) 05/29/2024 Sciatica, right side (ICD-10 - M54.31) 05/16/2024 Other intervertebral disc degeneration, lumbar region with discogenic back pain and lower extremity pain (ICD-10 - M51.362) 05/01/2024 Osseous stenosis of neural canal of lumbar region (ICD-10 - M99.33) 04/26/2024 Osseous stenosis of neural canal of lumbar region (ICD-10 - M99.33) 02/03/2024 Osseous stenosis of neural canal of lumbar region (ICD-10 - M99.33) 01/13/2024 Other intervertebral disc degeneration, lumbar region with discogenic back pain and lower extremity pain (ICD-10 - M51.362) 12/16/2023 Osseous stenosis of neural canal of lumbar region (ICD-10 - M99.33) 11/29/2023 Osseous stenosis of neural canal of lumbar region (ICD-10 - M99.33) 11/22/2023 Osseous stenosis of neural canal of lumbar region (ICD-10 - M99.33) 12/16/2023 Sacroiliitis, not elsewhere classified (ICD-10 - M46.1) 11/22/2023 Sacroiliitis, not elsewhere classified (ICD-10 - M46.1) 02/03/2024 Sacroiliitis, not elsewhere classified (ICD-10 - M46.1) 01/13/2024 Osseous stenosis of neural canal of lumbar region (ICD-10 - M99.33) 04/26/2024 Sacroiliitis, not elsewhere classified (ICD-10 - M46.1) 05/16/2024 Osseous stenosis of neural canal of lumbar region (ICD-10 - M99.33) 05/29/2024 Other intervertebral disc degeneration, lumbar region with discogenic back pain and lower extremity pain (ICD-10 - M51.362) 05/29/2024 Osseous stenosis of neural canal of lumbar region (ICD-10 - M99.33) 05/16/2024 Sacroiliitis, not elsewhere classified (ICD-10 - M46.1) 02/03/2024 termite treater (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 Patient verbalized understanding. 04/26/2024 termite treater (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 of non-steroidal anti-inflammatories (NSAID) (ICD-10 - Z79.1) 01/13/2024 Sacroiliitis, not elsewhere classified (ICD-10 - M46.1) 05/29/2024 Sacroiliitis, not elsewhere classified (ICD-10 - M46.1) 05/16/2024 care home (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 of non-steroidal anti-inflammatories (NSAID) (ICD-10 - Z79.1) 05/29/2024 care home (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 of non-steroidal anti-inflammatories (NSAID) (ICD-10 - Z79.1) 11/22/[address] Chalo mercado for your kind referral and for involving me in the care of this patient. 12/16/2023 Other The above-named patient was evaluated in conjunction with Dr. Gill. I have discussed and reviewed all of the pertinent history, physical examination findings and diagnostic imaging results with him. As a result of our discussion, Dr. Gill has determined the above assessment and directed the treatment plan. This note was dictated using voice recognition software and therefore inadvertent errors may have occurred. This note was dictated by BRIANNA Cox. Total Time Spent with Patient and Medical Decision Makin minutes 01/13/2024 Other The above-named patient was evaluated in conjunction with Dr. Gill. I have discussed and reviewed all of the pertinent history, physical examination findings and diagnostic imaging results with him. As a result of our discussion, Dr. Gill has determined the above assessment and directed the treatment plan. This note was dictated using voice recognition software and therefore inadvertent errors may have occurred. This note was dictated by BRIANNA Cox. Total Time Spent with Patient and Medical Decision Makin minutes 02/03/2024 Other The above-named patient was evaluated in conjunction with Dr. Gill. I have discussed and reviewed all of the pertinent history, physical examination findings and diagnostic imaging results with him. As a result of our discussion, Dr. Gill has determined the above assessment and directed the treatment plan. This note was dictated using voice recognition software and therefore inadvertent errors may have occurred. This note was dictated by BRIANNA Cox. Total Time Spent with Patient and Medical Decision Makin minutes 04/26/2024 Other The above-named patient was evaluated in conjunction with Dr. Gill. I have discussed and reviewed all of the pertinent history, physical examination findings and diagnostic imaging results with him. As a result of our discussion, Dr. Gill has determined the above assessment and directed the treatment plan. This note was dictated using voice recognition software and therefore inadvertent errors may have occurred. This note was dictated by BRIANNA Cox. Total Time Spent with Patient and Medical Decision Makin minutes 05/16/2024 Other The above-named patient was evaluated in conjunction with Dr. Gill. I have discussed and reviewed all of the pertinent history, physical examination findings and diagnostic imaging results with him. As a result of our discussion, Dr. Gill has determined the above assessment and directed the treatment plan. This note was dictated using voice recognition software and therefore inadvertent errors may have occurred. This note was dictated by BRIANNA Cox. Total Time Spent with Patient and Medical Decision Makin minutes PLAN OF TREATMENT No Information Insurance Providers Payer Name Payer Address Payer Phone Subscriber Number Group Number Insured Name Patient Relationship to Insured Coverage Start Date Coverage End Date [facility] MEDICARE ADVANTAGE (PPO) [address] [address] [place] [phone] [id number] BELLE ZIMMER Self - patient is the insured MEDICAL (GENERAL) HISTORY Medical History History ICD Code Melanoma Depression Hypertension Hypothyroidism Surgical History Surgery Date(Month/Year) Right SIJ fusion-Dr. Valdez 2019 Right partial knee replacement Cholecystectomy
--- OUTSIDE RECORDS SUMMARY | 2024-06-21 09:52 | XMS_ITS | Encounter Summary ---
Author Organization [facility] Address [address] [facility] [place] [address] Care Team Providers Care Forklift Picker Name Role Phone Pedro Hernandez MD Primary Care Provider [phone] Encounter Details Date Type Department Care Team (Late st Contact Info) Description 10/06/2022 Lab Requisition [facility] - [facility] [address] [facility] [place] [address] Radha Navarrete MD [address] [facility] [address] [place] [address] Social History Tobacco Use Types Packs/Day Years Used Date Smoking Tobacco: Former Alcohol Use Standard Drinks/Week Comments Yes 0 (1 standard drink = 0.6 oz pur e alcohol) Comments Unknown Sex and Gender Information Value Date Recorded Sex Assigned at Not on file Legal 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 Gender Identity Not on file Sexual Orientation Not on file documented as of this encounter Plan of Treatment Not on file documented as of this encounter Procedures Procedure Name Priority Date/Time Associated Diagnosis Comments DERMATOPATHOLOGY Routine 10/06/2022 11:0 2 AM CDT documented in this encounter Results * DERMATOPATHOLOGY (10/06/2022 11:02 AM CDT) Case Report Dermatopathology Report Case: [id number] Authorizing Provider: Radha Navarrete MD Collected: 10/06/2022 11:02 AM Ordering Location: [facility] Received: 10/07/2022 07:35 AM Pathologist: Lavon Dan MD Specimen: Skin, right koehler 3 4:40 PM CDT DERMATOPATHOLOGY LABORATORY Final Diagnosis Specimen A. SKIN, right koehler: ACTINIC KERATOSIS, LICHENOID (L57.0) 3 4:40 PM CDT DERMATOPATHOLOGY LABORATORY Clinical History BCC SCC 3 4:40 PM CDT DERMATOPATHOLOGY LABORATORY Gross Description Specimen A: Received is one formalin filled container labeled with the patient's name and designated right koehler. The specimen consists of a shave biopsy measuring 7x7x1 mm. Jar 0. 3 4:40 PM CDT DERMATOPATHOLOGY LABORATORY Microscopic Description Specimen A. SKIN, right koehler: There is focal parakeratosis. The lower half of the epidermis shows disorderly maturation of keratinocytes with nuclear pleomorphism. The dermis shows a band-like, chronic inflammatory infiltrate with occasional apoptotic keratinocytes and some basal vacuolar alteration. 3 4:40 PM CDT DERMATOPATHOLOGY LABORATORY Disclaimer An external and internal positive and negative controls are appropriate for the histochemical, immunohistochemical and immunofluorescence stain(s) in this case (if any), except where stated explicitly. The performance characteristics of the stain(s) cited in this report were developed and its performance characteristic determined by the Dermatopathology Laboratory at [facility], directed by Dr. Rebeca Dan. These tests need not be, and therefore are not, approved by the [place] Food and Drug Administration. The tests are used for clinical purposes. Billing Codes Specimen Charges Stain Charges 11738 1 3 4:40 PM CDT DERMATOPATHOLOGY LABORATORY Embedded Images 3 4:40 PM CDT DERMATOPATHOLOGY LABORATORY Pathology/Cytolo gy TISSUE SPECIMEN FROM SKIN / Unknown 10/06/2022 11:02 AM CDT 10/07/2022 7:35 AM CDT us Radha Navarrete MD LAB - PATHOLOGY/CYTOLOGY ORD ERABLES Final Result DERMATOPATHOLOGY LABORATORY [facility] - Department of Dermatology [address] [phone] documented in this encounter Visit Diagnoses Not on filedocumented in this encounter Care Teams Forklift Picker Relationship Specialty Start Date End Date Pedro Hernandez MD [address] [place] [address] PCP - General 04/30/14 documented as of this encounter
--- OUTSIDE RECORDS SUMMARY | 2024-06-21 09:52 | XMS_ITS | Encounter Summary ---
Author Organization [facility] Address [address] [facility] [place] [address] Care Team Providers Care Extrusion Line Operator Name Role Phone Pedro Hernandez MD Primary Care Provider +1- [phone] Encounter Details Date Type Department Care Team (Late st Contact Info) Description 01/25/2020 Lab Requisition [facility] [place] DermPath Lab [address] [facility], [place] [address] Radha Navarrete MD [address] [facility] 3 DEPT [place] [address] Social History Tobacco Use Types Packs/Day Years Used Date Smoking Tobacco: Former Alcohol Use Standard Drinks/Week Comments Yes 0 (1 standard drink = 0.6 oz pur e alcohol) Comments Unknown Sex and Gender Information Value Date Recorded Sex Assigned at Not on file Legal Sex Female 5:44 PM STEM SIZER Gender Identity Not on file Sexual Orientation Not on file documented as of this encounter Plan of Treatment Not on file documented as of this encounter Procedures Procedure Name Priority Date/Time Associated Diagnosis Comments DERMATOPATHOLOGY Routine 01/24/2020 12:0 0 AM STEM SIZER documented in this encounter Results * DERMATOPATHOLOGY (01/24/2020 12:00 AM STEM SIZER) Case Report Dermatopathology Report Case: [id number] Authorizing Provider: Radha Navarrete MD Collected: 01/24/2020 12:00 AM Ordering Location: [facility] [place] Derm[facility] Lab Received: 01/25/2020 10:10 AM Pathologist: Lavon Dan MD Specimen: Skin, left FA 0 12:49 PM STEM SIZER DERMATOPATHOLOGY LABORATORY Final Diagnosis Specimen A. SKIN, left FA: HYPERPLASTIC (HYPERTROPHIC) ACTINIC KERATOSIS (L57.0) 0 12:49 PM STEM SIZER DERMATOPATHOLOGY LABORATORY Clinical History [place] papule, ISK vs BCC. 0 12:49 PM STEM SIZER DERMATOPATHOLOGY LABORATORY Gross Description Specimen A: Received is one formalin filled container labeled with the patient's name and designated left FA. The specimen consists of a shave measuring [id number]. Jar 0. 0 12:49 PM STEM SIZER DERMATOPATHOLOGY LABORATORY Microscopic Description Specimen A. SKIN, left FA: There is hyperkeratosis alternating with parakeratosis. There is epidermal hyperplasia with disorderly maturation of keratinocytes with nuclear pleomorphism confined to the lower half of the epidermis. 0 12:49 PM [facility] DERMATOPATHOLOGY LABORATORY Disclaimer An external and internal positive and negative controls are appropriate for the histochemical, immunohistochemical and immunofluorescence stain(s) in this case (if any), except where stated explicitly. The performance characteristics of the stain(s) cited in this report were developed and its performance characteristic determined by the Dermatopathology Laboratory at [facility], directed by Dr. Rebeca Dan. These tests need not be, and therefore are not, approved by the [place] Food and Drug Administration. The tests are used for clinical purposes. Billing Codes Specimen Charges Stain Charges 03228 1 0 12:49 PM STEM SIZER DERMATOPATHOLOGY LABORATORY Embedded Images 0 12:49 PM [facility] DERMATOPATHOLOGY LABORATORY Pathology/Cytolog y TISSUE SPECIMEN FROM SKIN / Unknown 01/24/2020 01/25/2020 10:10 AM STEM SIZER us Radha Navarrete MD LAB - PATHOLOGY/CYTOLOGY ORD ERABLES Final Result DERMATOPATHOLOGY LABORATORY [facility] - Department of Dermatology [facility] Medicine [address] [place] [address], [address]rd [place] [address], [facility] [phone] documented in this encounter Visit Diagnoses Not on filedocumented in this encounter Care Teams Extrusion Line Operator Relationship Specialty Start Date End Date Pedro Hernandez MD [facility] [place] [id number] PCP - General 04/30/14 documented as of this encounter
--- OUTSIDE RECORDS SUMMARY | 2024-06-21 09:52 | XMS_ITS | Clinical Summary ---
Author Organization [facility] Address [address] [facility] [place] [address] Care Team Providers Care Insole Bottom Filler Name Role Phone Pedro Hernandez MD Primary Care Provider +1- [phone] [facility],non-owned Affiliates and Associated Physician Practices is amultiple site organization consisting of ambulatory clinics and hospital sitesin [place], [place], [place] and [place]. This disclosure is being madepursuant to the Care Everywhere program and may not contain all information available regarding this patient. Last updated 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 Encounters Date Type Department Care Team Description 04/13/2024 Lab Requisition [facility] - DermPath Lab [address] [place] [address] Radha Navarrete MD from Last 3 Months Family History Medical History Relation Name Comments Cancer Father Status: d Hypertension Father Hypertension Mother Status: Alive Relation Name Status Comments Father Mother Social History Tobacco Use Types Packs/Day Years Used Date Smoking Tobacco: Former Alcohol Use Standard Drinks/Week Comments Yes 0 (1 standard drink = 0.6 oz pur e alcohol) Comments Unknown Sex and Gender Information Value Date Recorded Sex Assigned at Not on file Legal Sex Female 5:44 PM AUTOMAT CAR ATTENDANT Gender Identity Not on file Sexual Orientation Not on file Last Filed Vital Signs Vital Sign Reading Time Taken Comments Blood Pressure 129/77 11/30/2014 1:54 PM CDT Pulse 78 11/30/2014 1:54 PM CDT Temperature 36.8 C (98.2 F) 11/30/2014 1:54 PM CDT Respiratory Rate - - Oxygen Saturation - - Inhaled Oxygen Concentration - - Weight 90.7 kg (200 lb) 11/30/2014 1:54 PM CDT Height 160 cm (5' 3 ) 11/30/2014 1:54 PM CDT Body Mass Index 35.43 11/30/2014 1:54 PM CDT Plan of Treatment Health Maintenance Due Date Last Done Comments BONE DENSITY TESTING 1950 COLOGUARD (AGES 45-75) - COL ON CA SCREENING 1950 COLON MONITORING 1950 COLONOSCOPY - COLON CA SCREENING 1950 CT COLONOGRAPHY - COLON CA SCREENING 1950 Colorectal Cancer Screening 1950 FIT - COLON CA SCREENING 1950 FLEX SIG - COLON CA SCREENING 1950 LIPID TESTING 1950 MAMMOGRAM 1950 HEPATITIS C SCREENING 02/24/1968 DTAP/TDAP/TD VACCINES (1 - Tdap) 1969 PNEUMOCOCCAL VACCINE 50+ (1 of 1 - PCV) 02/29/2000 ZOSTER VACCINE (1 of 2) 02/29/2000 COVID-19 VACCINE ( - 2023-2 5 season) 2023 DEPRESSION SCREENING 02/09/2024 MEDICARE AWV CALENDAR YEAR 2024 INFLUENZA VACCINE (Season Ended) 2024 Respiratory Syncytial Virus (RSV) Vaccine Pt: or over 60 yrs (1 - 1-dose 75+ series) 2025 HEPATITIS B VACCINE Aged Out No longe r eligible based on patient's age to complete this topic HIB VACCINE Aged Out No longer eligi ble based on patient's age to complete this topic HPV VACCINE Aged Out No longer eligi ble based on patient's age to complete this topic MENINGOCOCCAL (Group B) VACC INE SHARED DECISION-MAKING Aged Out No longer eligibl e based on patient's age to complete this topic MENINGOCOCCAL GROUPS A/C/Y/W VACCINE Aged Out No longer eligible b ased on patient's age to complete this topic Procedures Procedure Name Priority Date/Time Associated Diagnosis Comments DERMATOPATHOLOGY Routine 04/13/2024 10:0 4 AM AUTOMAT CAR ATTENDANT from Last 3 Months Results * DERMATOPATHOLOGY (04/13/2024 10:04 AM AUTOMAT CAR ATTENDANT) Case Report Dermatopathology Report Case: [id number] Authorizing Provider: Radha Navarrete MD Collected: 04/13/2024 10:04 AM Ordering Location: [facility] - Received: 04/14/2024 10:21 AM DermPath Lab Pathologist: Malinda Ibrahim MD Specimen: Skin, left back 1:41 PM CDT DERMATOPATHOLOGY LABORATORY Final Diagnosis Specimen A. SKIN, left back: BASAL CELL CARCINOMA, NODULAR TYPE (C44.519) 1:41 PM CDT DERMATOPATHOLOGY LABORATORY Clinical History R/O BCC 1:41 PM CDT DERMATOPATHOLOGY LABORATORY Gross Description Specimen A: Received is one formalin filled container labeled with the patient's name and designated left back. The specimen consists of a shave biopsy measuring 7x7x1 mm. Jar 0. 1:41 PM CDT DERMATOPATHOLOGY LABORATORY Microscopic Description Specimen A. SKIN, left back: Within the dermis there are aggregates of basaloid cells with a high nuclear to cytoplasmic ratio and peripheral palisading. 1:41 PM CDT DERMATOPATHOLOGY LABORATORY Disclaimer An external and internal positive and negative controls are appropriate for the histochemical, immunohistochemical and immunofluorescence stain(s) in this case (if any), except where stated explicitly. The performance characteristics of the stain(s) cited in this report were developed and its performance characteristic determined by the Dermatopathology Laboratory at [facility], directed by Dr. Rebeca Dan. These tests need not be, and therefore are not, approved by the [place] Food and Drug Administration. The tests are used for clinical purposes. Billing Codes Specimen Charges Stain Charges 80980 1 1:41 PM CDT DERMATOPATHOLOGY LABORATORY Embedded Images 1:41 PM CDT DERMATOPATHOLOGY LABORATORY Pathology/Cytolo gy TISSUE SPECIMEN FROM SKIN / Unknown 04/13/2024 10:04 AM AUTOMAT CAR ATTENDANT 04/14/2024 10:21 AM AUTOMAT CAR ATTENDANT us Radha Navarrete MD LAB - PATHOLOGY/CYTOLOGY ORD ERABLES Final Result DERMATOPATHOLOGY LABORATORY [facility] - Department of Dermatology [place] [id number] [facility], 3rd [place] [address], [facility] [phone] from Last 3 Months Insurance MEDICARE [facility] MANAGED MEDICARE ADV SELF PAY NO INSURANCE Member Subscriber Plan / Payer (Ef fective for All Dates) Name:Belle Foster Member ID:Not on file Relation to Subscriber:Not on file Name:BELLE FOSTER Subscriber ID:Not on file Address: [address] [place] [address] Payer ID:Not on file Group ID:Not on file Type:Self Pay Address: [facility] MANAGED MEDICARE ADV SELF PAY NO INSURANCE Member Subscriber Plan / Payer (Ef fective for All Dates) Name:Belle Foster Member ID:Not on file Relation to Subscriber:Not on file Name:BELLE FOSTER Subscriber ID:Not on file Address: [address] [place] [address] Payer ID:Not on file Group ID:Not on file Type:Self Pay Address: [place], [place] [employer] MANAGED [place] [place] [address] [place]ICARE [place] MED[place] [facility] [facility] [place]ICARE B[place] MED[place]ARE [employer] [place] MEDICARE [facility] MEDICARE [facility] MEDICARE [employer] [place] Care Teams Insole Bottom Filler Relationship Specialty Start Date End Date Pedro Hernandez MD [address] [place] [phone] PCP - General 04/30/14
--- OUTSIDE RECORDS SUMMARY | 2024-06-21 09:52 | XMS_ITS | Clinical Summary ---
Author Organization [facility] Address [address] [place] [address] Phone Care Team Providers Care Cooperage Shop Supervisor Name Role Phone Pedro Hernandez MD Primary Care Provider +1- [phone] Allergies No known active allergies Medications multivitamin,tx -iron-ca-min (THERA-M) 27-0.4 mg Tablet Take 1 Tablet by mouth daily. Active fluticasone (FLONASE) 50 mcg/spray [place], Suspension Administer 2 Sprays in each nostril daily. Active lorcaserin (BELVIQ XR) 20 mg Tablet Sustained Release 24HRIndications :BMI 37.0-37.9, adult Take 1 Tablet by mouth daily. 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 Gender Identity Not on file Sexual Orientation Not on file Last Filed Vital Signs Vital Sign Reading Time Taken Comments Blood Pressure 150/86 11/10/2016 11:32 AM CDT Pulse 71 11/10/2016 11:32 AM CDT Temperature 37.1 C (98.8 F) 11/10/2016 11:32 AM CDT Respiratory Rate 16 11/10/2016 11:32 AM CDT Oxygen Saturation 97% 11/10/2016 11:32 AM CDT Inhaled Oxygen Concentration - - Weight 93.4 kg (206 lb) 11/10/2016 11:32 AM CDT Height 160 cm (5' 3 ) 11/10/2016 11:32 AM CDT Body Mass Index 36.49 11/10/2016 11:32 AM CDT Plan of Treatment Health Maintenance Due Date Last Done Comments DTAP/TDAP/TD VACCINES (1 - Tdap) 1969 COLORECTAL SCREENING 1995 Colorectal Cancer Screening 1995 FIT-DNA Q 3 years 1995 FIT/FOBT Q 1 year 1995 Flex Sig/CT Colonography Q 5 years 1995 PNEUMOCOCCAL VACCINE 50+ YEA RS (1 of 1 - PCV) 02/29/2000 ZOSTER VACCINE (1 of 2) 02/29/2000 BREAST CANCER SCREENING 06/08/2019 06/07/2018, 06/07 OSTEOPOROSIS SCREENING 05/19/2023 05/18/2018 INFLUENZA VACCINE (#1) 2023 RSV VACCINE (60+ or ) (1 - 1-dose 75+ series) 2025 Insurance MEDICARE PART A AND B [facility] Care Teams Cooperage Shop Supervisor Relationship Specialty Start Date End Date Pedro Hernandez MD [address] [place] [phone] PCP - General 06/23/00
--- OUTSIDE RECORDS SUMMARY | 2024-06-21 09:52 | XMS_ITS ---
Author Organization [facility] Address [address] [facility] [place] [address] Care Team Providers Care Supervisor Refractory Products Name Role Phone ARMANDO SYLVESTER, RAMAKRISHNA Primary Care Provider Marck Chambers Unavailable [phone] MD CANDI, PAULY Unavailable Unavailable REASON FOR VISIT Right Low Back Pain MEDICATIONS Medication SIG (Take, Route, Frequency, Duration) Notes Start Date End Date Status metFORMIN HCl ER 500 MG TAKE 1 TABLET BY MOUTH DAILY Oral for 90 Active Levothyroxine Sodium 50 MCG Oral for 90 Active traZODone HCl 50 MG TAKE 1 TABLET BY MOUTH EVERY DAY AT BEDTIME Oral for 90 Active Losartan Potassium-HCTZ 50-12.5 MG Oral for 90 Active Aleve 220 MG 1 tablet with food or milk as needed Orally every 12 hrs Active Zolpidem Tartrate 10 MG TAKE 1 TABLET BY MOUTH EVERY DAY AT BEDTIME Oral for 90 R457,Unavailabl e Active Breo Ellipta 200-25 MCG/ACT Inhalation for 30 Active Escitalopram Oxalate 10 MG TAKE 1 TABLET BY MOUTH DAILY AT BEDTIME Oral for 90 Active VITAL SIGNS Blood pressure systolic 148 mm Hg 05/23/19 25 Blood pressure diastolic 73 mm Hg 025 Heart Rate 65 /min 05/22/2024 Respiratory Rate 18 /min 05/22/2024 Height 5 ft 2 in in 05/22/2024 Weight 208 lbs 05/22/2024 BMI 38.04 kg/m2 05/22/2024 Encounters Encounter Location Date Provider Diagnosis [facility] [address] [facility] [place] [address] 05/22/2024 Marck Gill Sciatica, right side M54.31 ASSESSMENTS Encounter Date Diagnosis Assessment Notes Treatment Notes Treatment Clinical Notes 05/22/2024 Sciatica, right side (ICD-10 - M54.31) PLAN OF TREATMENT Next Appt Details Follow Up: F/U 05/29/24, Reas on: Procedure Notes * Category Sub-Category Detail Notes Peripheral Nerve Block Procedure: Right Sci atic Nerve Block at piriformis with Ultrasound Guidance Operative Technique: After the risks, be nefits, alternative treatments and potential complications related to the procedure were discussed and written and informed consent was obtained, the patient was positioned. Standard ASA monitors were applied. The RIGHT buttock was prepped and draped in the usual sterile fashion with chlorohexidine 2%/IPA 70%. The sciatic notch was imaged with ultrasound and entered under live U/S guidance with a 25-gauge 1.5-inch needle. 1 mL of 1% PF lidocaine was injected during needle placement. A solution of 10 mg of Preservative-Free Dexamethasone (10 mg/mL), plus 3 mL of 0.25% preservative- free plain bupivacaine was mixed. After negative aspiration 4 mL of the above solution was slowly injected. There was good spread of injectate along the nerve sheath seen on live U/S. There was no loculation or vascular uptake. The needle was removed, the skin was cleaned and a band-aid was placed over the puncture site. The patient tolerated the procedure well, was able to ambulate without difficulty and was monitored for 20 minutes. Patient reports a 90% reduction in typical pain immediately postprocedure. The patient remained hemodynamically and neurologically stable. No apparent complications were observed. Postoperative instructions were reviewed with the patient. The patient was then discharged home in good condition with a stage driver Progress Notes * Examination Category Sub-Category Detail Notes Examination/ Pre-Anesthesia Assessment General: The patient is alert and carmelo ented X 3 in moderate distress secondary to pain HEENT: Normocephalic, atrau matic. PERRL. The oropharynx is clear Neck: There is full range of motion of the cervical spine Heart: Regular rate and rhy thm Chest: Clear to auscultatio n bilaterally Abdomen: Soft and benign with normal bowel sounds throughout Musculoskeletal and Extremities: There i s tenderness to palpation over the bilateral L2-3 through L5-S1 facet joints. Extension and lateral rotation of the lumbar spine reproduces the patient's typical axial low back pain. Yuir's, Elizabeth's and Gaenslen's are positive bilaterally. There is tenderness to palpation over the bilateral sacroiliac joints and greater trochanters. There is tenderness to palpation over the bilateral lumbar paraspinal muscles and palpable myofascial trigger points throughout. There is weakness and atrophy of the bilateral lumbar paraspinal muscles Neurological: There is positive st raight leg raising on the right. 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 There is a 3 mm retrolisthesis of L2 on L3 and L3 on L4. There is DDD at L2-3, L3-4 and L4-5. There is bilateral facet arthropathy at all levels of the lumbar spine. At L2-3 there is mild right and moderate left foraminal stenosis. At L3-4 there is mild central canal, mild right and moderate left foraminal stenosis. At L4-5 there is diffuse disc bulging with an annular fissure and severe facet osteoarthritis. There is moderate right and mild left foraminal stenosis with mild central canal stenosis. At L5-S1 there is mild bilateral foraminal stenosis Assessment and Follow-up: Follow-up Plan documelinda marsha:: Yes [facility] Quality 2020: MIPS Documented:: Compliant
--- OUTSIDE RECORDS SUMMARY | 2024-06-21 09:52 | XMS_ITS | Encounter Summary ---
Author Organization [facility] Address [address] [facility] [place] [address] Care Team Providers Care Anime Designer Name Role Phone Pedro Hernandez MD Primary Care Provider +1- [phone] Encounter Details Date Type Department Care Team (Late st Contact Info) Description 02/15/2023 Lab Requisition [facility] - DermPath Lab [address] [facility], [place] [address] Radha Navarrete MD [address] [facility] [address] [place] [address] Social History Tobacco Use Types Packs/Day Years Used Date Smoking Tobacco: Former Alcohol Use Standard Drinks/Week Comments Yes 0 (1 standard drink = 0.6 oz pur e alcohol) Comments Unknown Sex and Gender Information Value Date Recorded Sex Assigned at Not on file Legal Sex Female 5:44 PM AIRPLANE TECHNICIAN Gender Identity Not on file Sexual Orientation Not on file documented as of this encounter Plan of Treatment Not on file documented as of this encounter Procedures Procedure Name Priority Date/Time Associated Diagnosis Comments DERMATOPATHOLOGY Routine 02/15/2023 1:50 PM AIRPLANE TECHNICIAN documented in this encounter Results * DERMATOPATHOLOGY (02/15/2023 1:50 PM AIRPLANE TECHNICIAN) Case Report Dermatopathology Report Case: [id number] Authorizing Provider: Radha Navarrete MD Collected: 02/15/2023 01:50 PM Ordering Location: [facility] DermPath Lab Received: 02/16/2023 01:07 PM Pathologist: Eugenie Morales MD Specimen: Skin, left leg 4:24 PM [facility] DERMATOPATHOLOGY LABORATORY Final Diagnosis Specimen A. SKIN, left leg: LENTIGINOUS MELANOCYTIC NEVUS, COMPOUND TYPE, IRRITATED AND INFLAMED (D22.72) (see microscopic description) 4:24 PM [facility] DERMATOPATHOLOGY LABORATORY Clinical History Nevus vs. MM 4:24 PM [facility] DERMATOPATHOLOGY LABORATORY Gross Description Specimen A: Received is one formalin filled container labeled with the patient's name and designated left leg. The specimen consists of a shave biopsy measuring 7x6x1 mm. Jar 0. 4:24 PM [facility] DERMATOPATHOLOGY LABORATORY Microscopic Description Specimen A. SKIN, left leg: This is a compound nevus. There is melanin pigment within the stratum corneum. There is a lentiginous proliferation of melanocytes between nests of cells along the dermal-epidermal junction, highlighted by MART-1/Melan-A immunohistochemical staining. There is underlying fibroplasia of the papillary dermis. The intradermal component is bland appearance and matures with depth. Original and deeper sections were reviewed. (Compound Ricki's Nevus) Inflammatory cells are present within the nevus. Additional deeper sections were obtained and reviewed. 4:24 PM [facility] DERMATOPATHOLOGY LABORATORY Disclaimer An external and internal positive and negative controls are appropriate for the histochemical, immunohistochemical and immunofluorescence stain(s) in this case (if any), except where stated explicitly. The performance characteristics of the stain(s) cited in this report were developed and its performance characteristic determined by the Dermatopathology Laboratory at [facility], directed by Dr. Rebeca Dan. These tests need not be, and therefore are not, approved by the [place] Food and Drug Administration. The tests are used for clinical purposes. Billing Codes Specimen Charges Stain Charges 01026 1 92281 1 4:24 PM [facility] DERMATOPATHOLOGY LABORATORY Embedded Images 4:24 PM [facility] DERMATOPATHOLOGY LABORATORY Pathology/Cytolo gy TISSUE SPECIMEN FROM SKIN / Unknown 02/15/2023 1:50 PM AIRPLANE TECHNICIAN 02/16/2023 1:07 PM AIRPLANE TECHNICIAN Radha Navarrete MD LAB - PATHOLOGY/CYTOLOGY ORD ERABLES Final Result DERMATOPATHOLOGY LABORATORY [facility] - Department of Dermatology [facility] Specialized Medicine [address] [place] [address], [address] [phone] documented in this encounter Visit Diagnoses Not on filedocumented in this encounter Care Teams Anime Designer Relationship Specialty Start Date End Date Pedro Hernandez MD [address] [place] [phone] PCP - General 04/30/14 documented as of this encounter
--- OUTSIDE RECORDS SUMMARY | 2024-06-21 09:52 | XMS_ITS | Encounter Summary ---
Author Organization [facility] Address [address] [facility] [place] [address] Care Team Providers Care Mold Operator Name Role Phone Pedro Hernandez MD Primary Care Provider +1- [phone] Encounter Details Date Type Department Care Team (Late st Contact Info) Description 04/13/2024 Lab Requisition [facility] - DermPath Lab [address] [facility], [place] [address] Radha Navarrete MD [address] [facility] 3 [place] [address] Social History Tobacco Use Types Packs/Day Years Used Date Smoking Tobacco: Former Alcohol Use Standard Drinks/Week Comments Yes 0 (1 standard drink = 0.6 oz pur e alcohol) Comments Unknown Sex and Gender Information Value Date Recorded Sex Assigned at Not on file Legal Sex Female 5:44 PM AUTOMOBILE REPOSSESSOR Gender Identity Not on file Sexual Orientation Not on file documented as of this encounter Plan of Treatment Not on file documented as of this encounter Procedures Procedure Name Priority Date/Time Associated Diagnosis Comments DERMATOPATHOLOGY Routine 04/13/2024 10:0 4 AM AUTOMOBILE REPOSSESSOR documented in this encounter Results * DERMATOPATHOLOGY (04/13/2024 10:04 AM AUTOMOBILE REPOSSESSOR) Case Report Dermatopathology Report Case: [id number] Authorizing Provider: Radha Navarrete MD Collected: 04/13/2024 10:04 AM Ordering Location: [facility] Physician [facility] - Received: 04/14/2024 10:21 AM DermPath Lab Pathologist: Malinda Ibrahim MD Specimen: Skin, left back 03/10/202 5 1:41 PM CDT DERMATOPATHOLOGY LABORATORY Final Diagnosis Specimen A. SKIN, left back: BASAL CELL CARCINOMA, NODULAR TYPE (C44.519) 1:41 PM T DERMATOPATHOLOGY LABORATORY Clinical History R/O BCC 1:41 [...] characteristic determined by the Dermatopathology Laboratory at [facility], directed by Dr. Rebeca Dan. These tests need not be, and therefore are not, approved by the [place] Food and Drug Administration. The tests are used for clinical purposes. Billing Codes Specimen Charges Stain Charges 90451 1 1:41 PM CDT DERMATOPATHOLOGY LABORATORY Embedded Images 1:41 PM CDT DERMATOPATHOLOGY LABORATORY Pathology/Cytolo gy TISSUE SPECIMEN FROM SKIN / Unknown 04/13/2024 10:04 AM AUTOMOBILE REPOSSESSOR 04/14/2024 10:21 AM AUTOMOBILE REPOSSESSOR us Radha Navarrete MD LAB - PATHOLOGY/CYTOLOGY ORD ERABLES Final Result DERMATOPATHOLOGY LABORATORY [facility] - Department of Dermatology [address], [address] [phone] documented in this encounter Visit Diagnoses Not on filedocumented in this encounter Care Teams Mold Operator Relationship Specialty Start Date End Date Pedro Hernandez MD [facility] [place] [address] PCP - General 04/30/14 documented as of this encounter
--- OUTSIDE RECORDS SUMMARY | 2024-06-21 09:53 | XMS_ITS | Clinical Summary ---
Author Organization [facility] [place] [facility] Address [address] [place] [address] Care Team Providers Care Bookbinder Chief Name Role Phone Unavailable Primary Care Provider Unavailabl e Social History Tobacco Use Types Packs/Day Years Used Date Smoking Tobacco: Never Assessed Comments Unknown Sex and Gender Information Value Date Recorded Sex Assigned at Not on file Legal Sex Female 8:32 PM CDT Gender Identity Not on file Sexual Orientation Not on file Plan of Treatment Health Maintenance Due Date Last Done Comments Colorectal Cancer Screening Colonoscopy (10 Years) 1950 Hepatitis C 02/29/1968 DTaP, Tdap and Td Vaccines ( 1 - Tdap) 1969 Mammogram Screening 1990 Pneumococcal Vaccine: 50+ Ye ars (1 of 1 - PCV) 02/29/2000 Zoster Vaccines (1 of 2) 02/29/2000 Dexa Scan (General) 2015 COVID-19 Vaccine ( - 2023-2 5 season) 2023 RSV Immunization or 60+ Years (1 - 1-dose 75+ series) 2025 Meningococcal B Vaccine Aged Out No l onger eligible based on patient's age to complete this topic Meningococcal Vaccine Aged Out No raul napoleon eligible based on patient's age to complete this topic RSV Immunizations Under 20 Months Aged Out No longer eligible based on patient's age to complete this topic
--- OUTSIDE RECORDS SUMMARY | 2024-06-21 09:53 | XMS_ITS ---
Author Organization [facility] Address [address] [place] [address] [place] [address] Care Team Providers Care Loss Claim Clerk Name Role Phone ARMANDO SYLVESTER, RAMAKRISHNA Primary Care Provider Marck Chambers Unavailable [phone] MD CANDI, PAULY Unavailable Unavailable ALLERGIES No Known Allergies REASON FOR VISIT Follow Up, Right Low Back Pain, Right Lower Extremity Pain MEDICATIONS Medication SIG (Take, Route, Frequency, Duration) Notes Start Date End Date Status Losartan Potassium-HCTZ 50-12.5 MG Oral for 90 [...] DAILY AT BEDTIME Oral for 90 Active metFORMIN HCl ER 500 MG TAKE 1 TABLET BY MOUTH DAILY Oral for 90 Active Levothyroxine Sodium 50 MCG Oral for 90 Active traZODone HCl 50 MG TAKE 1 TABLET BY MOUTH EVERY DAY AT BEDTIME Oral for 90 Active SOCIAL HISTORY Tobacco Use: Social History Observation Description Date Details (start date - stop date) Former Smoker NA - NA Sex Assigned At : Social History Observation Description Sex Assigned At Unknown Tobacco Use/Smoking Question Answer Notes Are you a former smoker How long has it been since you last smoked? 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 05/16/2024 Other intervertebral disc degeneration, lumbar region with discogenic back pain and lower extremity pain (ICD-10 - M51.362) 05/16/2024 Osseous stenosis of neural canal of lumbar region (ICD-10 - M99.33) 05/16/2024 Sacroiliitis, not elsewhere classified (ICD-10 - M46.1) 05/16/2024 information technology audit manager (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 of non-steroidal anti-inflammatories (NSAID) (ICD-10 - Z79.1) 05/16/2024 Other The above-named patient was evaluated [...] Medical Decision Makin minutes PLAN OF TREATMENT Treatment Notes Assessment Notes Sciatica, right side Schedule a right sc iatic nerve block injection (at piriformis). The risks of this procedure including pain, bleeding, infection, nerve damage, insomnia, hyperglycemia, hair loss, muscle atrophy, skin depigmentation, weight gain, fluid retention, adrenal suppression, immunosuppression, osteoporosis resulting in fractures, avascular necrosis of the hip, cataracts, bleeding gastric ulcer, worsening pain and failure to relieve pain were discussed and the patient is agreeable to proceeding at this time. Other The above-named patient was evaluated in [...] with Patient and Medical Decision Makin minutes Next Appt Details Follow Up: right sciatic ner ve block @piriformis, Reason: Progress Notes * Examination Category Sub-Category Detail [...] the patient's typical axial low back pain. Yuri's, [place]'s and Gaenslen's are positive bilaterally. There is [...] foraminal stenosis Assessment and Follow-up: Follow-up Plan documen marsha:: Yes MIPS Quality 2020: MIPS Documented:: Compliant
--- OUTSIDE RECORDS SUMMARY | 2024-06-21 09:53 | XMS_ITS | Encounter Summary ---
Author Organization [facility] Address [address] [place] [address] Attn: Epic Prelude ADT QU[place] [address] Care Team Providers Care Assistant Facility Manager Name Role Phone Pedro Hernandez MD Primary Care Provider +1- [phone] Encounter Details Date Type Department Care Team (Late st Contact Info) Description 09/04/1992 Outpatient Historical Kin Teran MD [address] [facility] [address] [place] [phone] Social History Tobacco Use Types Packs/Day Years Used Date Smoking Tobacco: Never Assessed Comments Unknown Sex and Gender Information Value Date Recorded Sex Assigned at Not on file Legal Sex Female 4:32 AM MANAGER CUSTOMER Gender Identity Not on file Sexual Orientation Not on file documented as of this encounter Plan of Treatment Not on file documented as of this encounter Visit Diagnoses Not on filedocumented in this encounter Care Teams Assistant Facility Manager Relationship Specialty Start Date End Date Pedro Hernandez MD [address] [place] [address] [address] [place] [address] PCP - General 06/23/00 documented as of this encounter
--- OUTSIDE RECORDS SUMMARY | 2024-06-21 09:53 | XMS_ITS ---
Author Organization [facility] Address [address] [place] [address] [facility] [place] [address] Care Team Providers Care Trackman Name Role Phone ARMANDO SYLVESTER, RAMAKRISHNA Primary Care Provider Marck Chambers Unavailable [phone] MD CANDI, PAULY Unavailable Unavailable ALLERGIES No Known Allergies REASON FOR VISIT FOLLOW UP MEDICATIONS Medication SIG (Take, Route, Frequency, Duration) [...] DAILY AT BEDTIME Oral for 90 Active Levothyroxine [...] since you last smoked? > 10 years Encounters Encounter Location Date Provider Diagnosis [facility] [address] [facility] 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 ; Osseous stenosis of neural canal of lumbar region M99.33 ; Sacroiliitis, not elsewhere classified M46.1 and salvage determiner (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 of non-steroidal anti-inflammatories (NSAID) Z79.1 ASSESSMENTS Encounter Date Diagnosis Assessment Notes Treatment Notes Treatment Clinical Notes 05/29/2024 Radiculopathy, lumba r region (ICD-10 - M54.16) 05/29/2024 Sciatica, right side (ICD-10 - M54.31) 05/29/2024 Other intervertebral disc degeneration, lumbar region with discogenic back pain and lower extremity pain (ICD-10 - M51.362) 05/29/2024 Osseous stenosis of neural canal of lumbar region (ICD-10 - M99.33) 05/29/2024 Sacroiliitis, not elsewhere classified (ICD-10 - M46.1) 05/29/2024 retirement (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 of non-steroidal anti-inflammatories (NSAID) (ICD-10 - Z79.1) PLAN OF TREATMENT No Information Progress Notes * Examination Category Sub-Category Detail [...] patient's typical axial low back pain. Yuri's, [place]'s and Gaenslen's are positive bilaterally. There is [...]
== END 2024-06-21 09:42 | disposition home or self-care (01) ==
LOC: CHSIMG 09:42
PROVIDERS: PCP Family Medicine; Visit Provider Family Medicine
DX: Z12.31 Encounter for screening mammogram for malignant neoplasm of breast (principal)
CPT/HCPCS: 77063; 77067

== ENCOUNTER 2024-07-10 11:11 | Outpatient (CLI) | payer MEDICARE, SELFPAY ==
--- NOTE | ~2024-07-10 | XR_ITS ---
Right Shoulder Technique: AP and axillary views were obtained. Clinical History: Injury Findings: No fracture or dislocation is seen. Osseous alignment is anatomic. The glenohumeral and acr omioclavicular joint spaces are preserved. Soft tissues are unremarkable. Impression: Unremarkable right shoulder radiographs. Reviewed, dictated and finalized at [facility]. Impression: Unremarkable right shoulder radiographs.
--- OUTSIDE RECORDS SUMMARY | 2024-07-10 11:47 | XMS_ITS | Encounter Summary ---
Author Organization [facility] Address [address] [place] [address] Care Team Providers Care Filling Hand Name Role Phone Pedro Hernandez MD Primary Care Provider +1- [phone] Encounter Details Date Type Department Care Team (Latest Contact Info) Description 02/24/1999 Outpatient Historical [facility] Errol Rosa MD [address] [place] [address] Other plastic surgery for unacceptable cosmetic appearance (Primary Dx) Social History Tobacco Use Types Packs/Day Years Used Date Smoking Tobacco: Never Assessed Comments Unknown Sex and Gender Information Value Date Recorded Sex Assigned at Not on file Legal Sex Female 4:32 AM TEST BAKER Gender Identity Not on file Sexual Orientation Not on file documented as of this encounter Plan of Treatment Not on file documented as of this encounter Visit Diagnoses Diagnosis Other plastic surgery for unacceptable cosmetic appearance- Primary documented in this encounter Care Teams Filling Hand Relationship Specialty Start Date End Date Pedro Hernandez MD [address] [place] [phone] PCP - General 06/23/00 documented as of this encounter
--- OUTSIDE RECORDS SUMMARY | 2024-07-10 11:47 | XMS_ITS | Clinical Summary ---
Author Organization [facility] Address [address] [place] [address] Phone Care Team Providers Care Cut Out Marker Name Role Phone Pedro Hernandez MD Primary Care Provider +1- [phone] Allergies No known active allergies Medications multivitamin,tx -iron-ca-min (THERA-M) 27-0.4 mg Tablet Take 1 Tablet by mouth daily. Active fluticasone (FLONASE) 50 mcg/spray [place], Suspension Administer 2 Sprays in each nostril [...] on file Legal Sex Female 4:32 AM HEAD OF DATA Gender Identity Not on file Sexual Orientation [...] 11:32 AM CDT Height 160 cm (5' 3) 11/10/2016 11:32 AM CDT Body Mass Index [...] 2025 Insurance MEDICARE PART A AND [facility] Care Teams Cut Out Marker Relationship Specialty Start Date End Date Pedro Hernandez MD [address] [place] [phone] PCP - General 06/23/00
--- OUTSIDE RECORDS SUMMARY | 2024-07-10 11:47 | XMS_ITS | Encounter Summary ---
Author Organization [facility] Health Address [address] [facility] [place] [address] Care Team Providers Care Vice President Payment Name Role Phone Pedro Hernandez MD Primary Care Provider +1- [phone] Encounter Details Date Type Department Care Team (Late st Contact Info) Description 04/13/2024 Lab Requisition [facility] - DermPath Lab [address] [facility], [place] [address] Radha Navarrete MD [address] [facility] 3 [place] [address] Social History Tobacco Use Types Packs/Day Years Used Date Smoking Tobacco: Former Alcohol Use Standard Drinks/Week Comments Yes 0 (1 standard drink = 0.6 oz pur e alcohol) Comments Unknown Sex and Gender Information Value Date Recorded Sex Assigned at Not on file Legal Sex Female 5:44 PM SPECIAL PROJECTS MANAGER Gender Identity Not on file Sexual Orientation Not on file documented as of this encounter Plan of Treatment Not on file documented as of this encounter Procedures Procedure Name Priority Date/Time Associated Diagnosis Comments DERMATOPATHOLOGY Routine 04/13/2024 10:0 4 AM SPECIAL PROJECTS MANAGER documented in this encounter Results * DERMATOPATHOLOGY (04/13/2024 10:04 AM SPECIAL PROJECTS MANAGER) Case Report Dermatopathology Report Case: [id number] Authorizing Provider: Radha Navarrete MD Collected: 04/13/2024 10:04 AM Ordering Location: [facility] Physician [facility] - Received: 04/14/2024 10:21 AM DermPath Lab Pathologist: Malinda Ibrahim MD Specimen: Skin, left back 03/10/202 5 1:41 PM CDT DERMATOPATHOLOGY LABORATORY Final Diagnosis Specimen A. SKIN, left back: BASAL CELL CARCINOMA, NODULAR TYPE (C44.519) 1:41 PM CDT DERMATOPATHOLOGY LABORATORY at 1341 CDT Clinical History R/O BCC 1:41 PM CDT [...] characteristic determined by the Dermatopathology Laboratory at [facility], directed by Dr. Rebeca Dan. These tests need not be, and therefore are not, approved by the [place] Food and Drug Administration. The tests are used for clinical purposes. Billing Codes Specimen Charges Stain Charges 78532 1 1:41 PM CDT DERMATOPATHOLOGY LABORATORY Embedded Images 1:41 PM CDT DERMATOPATHOLOGY LABORATORY Pathology/Cytolo gy TISSUE SPECIMEN FROM SKIN / Unknown 04/13/2024 10:04 AM SPECIAL PROJECTS MANAGER 04/14/2024 10:21 AM SPECIAL PROJECTS MANAGER us Radha Navarrete MD LAB - PATHOLOGY/CYTOLOGY ORD ERABLES Final Result DERMATOPATHOLOGY LABORATORY [facility] - Department of Dermatology [address], [address] [phone] documented in this encounter Visit Diagnoses Not on filedocumented in this encounter Care Teams Vice President Payment Relationship Specialty Start Date End Date Pedro Hernandez MD [facility] [place] [address] PCP - General 04/30/14 documented as of this encounter
--- OUTSIDE RECORDS SUMMARY | 2024-07-10 11:47 | XMS_ITS | Encounter Summary ---
Author Organization [facility] Health Address [address] [facility] [place] [address] Care Team Providers Care Advertising Sales Associate Name Role Phone Pedro Hernandez MD Primary Care Provider +1- [phone] Encounter Details Date Type Department Care Team (Late st Contact Info) Description 02/15/2023 Lab Requisition [facility] - DermPath Lab [address] [facility], [place] [address] Radha Navarrete MD [address] [facility] 3 [place] [address] Social History Tobacco Use Types Packs/Day Years Used Date Smoking Tobacco: Former Alcohol Use Standard Drinks/Week Comments Yes 0 (1 standard drink = 0.6 oz pur e alcohol) Comments Unknown Sex and Gender Information Value Date Recorded Sex Assigned at Not on file Legal Sex Female 5:44 PM HOTEL OR MOTEL RECEPTIONIST Gender Identity Not on file Sexual Orientation Not on file documented as of this encounter Plan of Treatment Not on file documented as of this encounter Procedures Procedure Name Priority Date/Time Associated Diagnosis Comments DERMATOPATHOLOGY Routine 02/15/2023 1:50 PM HOTEL OR MOTEL RECEPTIONIST documented in this encounter Results * DERMATOPATHOLOGY (02/15/2023 1:50 PM HOTEL OR MOTEL RECEPTIONIST) Case Report Dermatopathology Report Case: [id number] Authorizing Provider: Radha Navarrete MD Collected: 02/15/2023 01:50 PM Ordering Location: [facility] DermPath Lab Received: 02/16/2023 01:07 PM Pathologist: Eugenie Morales MD Specimen: Skin, left leg 4:24 PM [facility] DERMATOPATHOLOGY LABORATORY Final Diagnosis Specimen A. SKIN, left leg: LENTIGINOUS MELANOCYTIC NEVUS, COMPOUND TYPE, IRRITATED AND INFLAMED (D22.72) (see microscopic description) 4:24 PM [facility] DERMATOPATHOLOGY LABORATORY at 1624 HOTEL OR MOTEL RECEPTIONIST Clinical History Nevus vs. MM 4:24 PM [facility] DERMATOPATHOLOGY LABORATORY Gross Description Specimen A: Received is one formalin filled container labeled with the patient's name and designated left leg. The specimen consists of a shave biopsy measuring 7x6x1 mm. Jar 0. 4:24 PM [facility] DERMATOPATHOLOGY LABORATORY Microscopic Description Specimen A. [...] sections were obtained and reviewed. 4:24 PM [facility] DERMATOPATHOLOGY LABORATORY Disclaimer An external and internal positive and negative controls are appropriate for the histochemical, immunohistochemical and immunofluorescence stain(s) in this case (if any), except where stated explicitly. The performance characteristics of the stain(s) cited in this report were developed and its performance characteristic determined by the Dermatopathology Laboratory at [facility], directed by Dr. Rebeca Dan. These tests need not be, and therefore are not, approved by the [place] Food and Drug Administration. The tests are used for clinical purposes. Billing Codes Specimen Charges Stain Charges 47582 1 22310 1 4:24 PM [facility] DERMATOPATHOLOGY LABORATORY Embedded Images 4:24 PM [facility] DERMATOPATHOLOGY LABORATORY Pathology/Cytolo gy TISSUE SPECIMEN FROM SKIN / Unknown 02/15/2023 1:50 PM HOTEL OR MOTEL RECEPTIONIST 02/16/2023 1:07 PM HOTEL OR MOTEL RECEPTIONIST Radha Navarrete MD LAB - PATHOLOGY/CYTOLOGY ORD ERABLES Final Result DERMATOPATHOLOGY LABORATORY [facility] - Department of Dermatology [facility] Specialized Medicine [address] [place] [address], [address] [phone] documented in this encounter Visit Diagnoses Not on filedocumented in this encounter Care Teams Advertising Sales Associate Relationship Specialty Start Date End Date Pedro Hernandez MD [address] [place] [phone] PCP - General 04/30/14 documented as of this encounter
--- OUTSIDE RECORDS SUMMARY | 2024-07-10 11:47 | XMS_ITS | Encounter Summary ---
Author Organization [facility] Health Address [address] [place] [address] Care Team Providers Care [employer] Assistant Manager Name Role Phone Pedro Hernandez MD Primary Care Provider +1- [phone] Encounter Details Date Type Department Care Team (Late st Contact Info) Description 10/06/2022 Lab Requisition [facility] - DermPath Lab [address] [facility], [place] [address] Radha Navarrete MD [address] [facility] 3 [place] [address] Social History Tobacco Use Types Packs/Day Years Used Date Smoking Tobacco: Former Alcohol Use Standard Drinks/Week Comments Yes 0 (1 standard drink = 0.6 oz pur e alcohol) Comments Unknown Sex and Gender Information Value Date Recorded Sex Assigned at Not on file Legal Sex Female 5:44 PM LEGAL ARBITRATOR Gender Identity Not on file Sexual Orientation Not on file documented as of this encounter Plan of Treatment Not on file documented as of this encounter Procedures Procedure Name Priority Date/Time Associated Diagnosis Comments DERMATOPATHOLOGY Routine 10/06/2022 11:0 2 AM CDT documented in this encounter Results * DERMATOPATHOLOGY (10/06/2022 11:02 AM CDT) Case Report Dermatopathology Report Case: [id number] Authorizing Provider: Radha Navarrete MD Collected: 10/06/2022 11:02 AM Ordering Location: [facility] DermPath Lab Received: 10/07/2022 07:35 AM Pathologist: Lavon Dan MD Specimen: Skin, right koehler 3 4:40 PM CDT DERMATOPATHOLOGY LABORATORY Final Diagnosis Specimen A. SKIN, right koehler: ACTINIC KERATOSIS, LICHENOID (L57.0) 3 4:40 PM CDT DERMATOPATHOLOGY LABORATORY at 1639 CDT Clinical History BCC SCC 3 4:40 PM [...] characteristic determined by the Dermatopathology Laboratory at [facility], directed by Dr. Rebeca Dan. These tests need not be, and therefore are not, approved by the [place] Food and Drug Administration. The tests are used for clinical purposes. Billing Codes Specimen Charges Stain Charges 83867 1 3 4:40 PM CDT DERMATOPATHOLOGY LABORATORY Embedded Images 3 4:40 PM CDT DERMATOPATHOLOGY LABORATORY Pathology/Cytolo gy TISSUE SPECIMEN FROM SKIN / Unknown 10/06/2022 11:02 AM CDT 10/07/2022 7:35 AM CDT us Radha Navarrete MD LAB - PATHOLOGY/CYTOLOGY ORD ERABLES Final Result DERMATOPATHOLOGY LABORATORY [facility] - Department of Dermatology [address], [address] [phone] documented in this encounter Visit Diagnoses Not on filedocumented in this encounter Care Teams [employer] Assistant Manager Relationship Specialty Start Date End Date Pedro Hernandez MD [address] [place] [phone] PCP - General 04/30/14 documented as of this encounter
--- OUTSIDE RECORDS SUMMARY | 2024-07-10 11:47 | XMS_ITS | Continuity of Care Document ---
Author Organization [facility] Address [address] [place] [address] [address] [place] [address] Phone Care Team Providers Care Veterinary Inspector Name Role Phone Agee OD, Bogdan Unavailable Unavailable Advance Directives Directive Yes / No Effective Date File Name No Information Encounters Encounter Description Practice Location Reason(s) For Visit Diagnoses Date Provider Providers Copied on Encounter [facility], [address], [place], [place], [id number], [place] tel:[phone] [facility] No Information Mar-0 9-200 0 Aege OD Bogdan. [address] , [address], [place], [address], [place]. tel:[phone] Family History Family Member Type Diagnosis Age At Onset No Information Payers Payer name Insurance type Covered democrat ID Authoriza tion(s) No Information Social History [...]
--- OUTSIDE RECORDS SUMMARY | 2024-07-10 11:47 | XMS_ITS | Patient Health Record ---
Author Organization [facility] Address [address] [place] [address] [place] [address] Care Team Providers Care Recreation Supervisor Name Role Phone ARMANDO SYLVESTER, RAMAKRISHNA Primary Care Provider Marck Chambers Unavailable [phone] MD CANDI, PAULY Unavailable Unavailable ALLERGIES No [...] Potassium-HCTZ 50-12.5 MG Oral for 90 Active Zolpidem Tartrate 10 MG TAKE 1 TABLET BY MOUTH EVERY DAY AT BEDTIME Oral for 90 Active Breo Ellipta 200-25 MCG/ACT Inhalation for 30 Active Escitalopram Oxalate 10 MG TAKE 1 TABLET BY MOUTH DAILY AT BEDTIME Oral for 90 Active Aleve 220 MG 1 tablet with food o r milk as needed Orally every 12 hrs Active PROBLEMS Problem Type ICD Code Onset Dates Problem Status W/U Status Risk SNOMED Code Notes Problem Sacroiliitis, not elsewhere classified (M46.1) Active confirmed Solitary sacroiliitis (194628170) Problem Spondylosis without myelopathy or radiculopathy, lumbar region (M47.816) Active confirmed Lumbosacral spondylosis without myelopathy (45600693) Problem Spondylosis without myelopathy or radiculopathy, lumbosacral region (M47.817) Active confirmed Lumbosacral spondylosis without myelopathy (disorder) (23764109) Problem Radiculopathy, lumbar region (M54.16) Active confirmed Lumbar radiculopathy (087622164) Problem Sciatica, unspecified side (M54.30) Active confirmed Sciatica (46585520) Problem Sciatica, right side (M54.31) Active confirmed Right side sciatica (795655271752722 ) Problem Sciatica, left side (M54.32) Active confirmed Left side sciatica (330723326513640 ) Problem Osseous stenosis of neural canal of lumbar region (M99.33) Active confirmed Spinal stenosis of lumbar region (65496351) Problem Other intervertebral disc degeneration, 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) Active confirmed VITAL SIGNS Heart Rate 70 /min 07/06/2024 Respiratory Rate 18 /min 07/06/2024 Blood pressure diastolic 81 mm Hg 07/06/2024 Height 5 ft 2 in in 07/06/2024 Blood pressure systolic 138 mm Hg 07/06/2024 Weight 207 lbs 07/06/2024 BMI 37.86 kg/m2 07/06/2024 Encounters Encounter Location Date Provider Diagnosis [facility] [address] [place] [address] 11/22/2023 Marck Stynowick Radiculopathy, lumba r region M54.16 ; Other intervertebral disc degeneration, lumbar region with discogenic back pain and lower extremity pain M51.362 ; Osseous stenosis of neural canal of lumbar region M99.33 and Sacroiliitis, not elsewhere classified M46.1 [facility] [address] [place] [address] 11/29/2023 Marck Stynowick Radiculopathy, lumba r region M54.16 ; Other intervertebral disc degeneration, lumbar region with discogenic back pain and lower extremity pain M51.362 and Osseous stenosis of neural canal of lumbar region M99.33 [facility] [address] [facility] [place] [address] 12/16/2023 Marck Stynowick Radiculopathy, lumba r region M54.16 ; Other intervertebral disc degeneration, lumbar region with discogenic back pain and lower extremity pain M51.362 ; Osseous stenosis of neural canal of lumbar region M99.33 and Sacroiliitis, not elsewhere classified M46.1 [facility] [address] [place] [address] [place] [address] 01/13/2024 Marck Stynowick Radiculopathy, lumba r region M54.16 ; Sciatica, right side M54.31 ; Other intervertebral disc degeneration, lumbar region with discogenic back pain and lower extremity pain M51.362 ; Osseous stenosis of neural canal of lumbar region M99.33 and Sacroiliitis, not elsewhere classified M46.1 [facility] [address] [place] [address], [place] [address] 01/17/2024 Marck Stynowick Sciatica, right side M54.31 [facility] [address] [place] [address], [place] [address] 02/03/2024 Marck Stynowick Radiculopathy, lumba r region M54.16 ; Other intervertebral disc degeneration, lumbar region with discogenic back pain and lower extremity pain M51.362 ; Osseous stenosis of neural canal of lumbar region M99.33 ; Sacroiliitis, not elsewhere classified M46.1 and intermediate teacher (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 of non-steroidal anti-inflammatories (NSAID) Z79.1 [facility] [address] [place] [address], [place] [address] 03/13/2024 Marck Stynowick Radiculopathy, lumba r region M54.16 [facility] [address] [place] [address], [place] [address] 04/26/2024 Marck Stynowick Radiculopathy, lumba r region M54.16 ; Other intervertebral disc degeneration, lumbar region with discogenic back pain and lower extremity pain M51.362 ; Osseous stenosis of neural canal of lumbar region M99.33 ; Sacroiliitis, not elsewhere classified M46.1 and intermediate teacher (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 of non-steroidal anti-inflammatories (NSAID) Z79.1 [facility] [address] [place] [address], [place] [address] 05/01/2024 Marck Stynowick Radiculopathy, lumba r region M54.16 ; Other intervertebral disc degeneration, lumbar region with discogenic back pain and lower extremity pain M51.362 and Osseous stenosis of neural canal of lumbar region M99.33 [facility] [address] [place] [address] 05/16/2024 Marck Stynowick Radiculopathy, lumba r region M54.16 ; Sciatica, right side M54.31 ; Other intervertebral disc degeneration, lumbar region with discogenic back pain and lower extremity pain M51.362 ; Osseous stenosis of neural canal of lumbar region M99.33 ; Sacroiliitis, not elsewhere classified M46.1 and custodial (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 of non-steroidal anti-inflammatories (NSAID) Z79.1 [facility] [address] [place] [phone] 05/22/2024 Marck Stynowick Sciatica, right side M54.31 [facility] [address] [place] [phone] 05/29/2024 Marck Stynowick Radiculopathy, lumba r region M54.16 ; Sciatica, right side M54.31 ; Other intervertebral disc degeneration, lumbar region with discogenic back pain and lower extremity pain M51.362 ; Osseous stenosis of neural canal of lumbar region M99.33 ; Sacroiliitis, not elsewhere classified M46.1 and intermediate teacher (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 of non-steroidal anti-inflammatories (NSAID) Z79.1 [facility] [address] [place] [address] 06/23/2024 Marck Stynowick Sciatica, right side M54.31 ; Spondylosis without myelopathy or radiculopathy, lumbar region M47.816 ; Radiculopathy, lumbar region M54.16 ; Other intervertebral disc degeneration, lumbar region with discogenic back pain and lower extremity pain M51.362 ; Osseous stenosis of neural canal of lumbar region M99.33 ; Sacroiliitis, not elsewhere classified M46.1 and Spondylosis without myelopathy or radiculopathy, lumbosacral region M47.817 [facility] [address] [place] [address] 06/26/2024 Marck Stynowick Spondylosis without myelopathy or radiculopathy, lumbar region M47.816 and Spondylosis without myelopathy or radiculopathy, lumbosacral region M47.817 [facility] [address] [place] [address] 07/06/2024 Marck Gill Sciatica, right side M54.31 ; Spondylosis without myelopathy or radiculopathy, lumbar region M47.816 ; Radiculopathy, lumbar region M54.16 ; Other intervertebral disc degeneration, lumbar region with discogenic back pain and lower extremity pain M51.362 ; Osseous stenosis of neural canal of lumbar region M99.33 ; Sacroiliitis, not elsewhere classified M46.1 and Spondylosis without myelopathy or radiculopathy, lumbosacral region M47.817 ASSESSMENTS Encounter Date Diagnosis Assessment Notes Treatment Notes Treatment Clinical Notes Section Notes 11/22/2023 Radiculopathy, lumbar region (ICD-10 - [...] 05/29/2024 Radiculopathy, lumbar region (ICD-10 - M54.16) 06/23/2024 Spondylosis without myelopathy or radiculopathy, lumbar region (ICD-10 - M47.816) schedule a bilateral L3-5 medial branch nerve block as a diagnostic and potentially therapeutic endeavor to isolate the source of the patient's facet-generated low back pain originating from the L4-5 and L5-S1 facet joints and to ultimately perform radiofrequency ablation for more durable pain relief. The risks of this procedure including pain, bleeding, infection, nerve damage, spinal cord injury, paralysis, total spinal anesthesia resulting in cardiopulmonary arrest/, respiratory distress requiring intubation, neuritis after radiofrequency ablation, hyperglycemia, insomnia, hair loss, muscle atrophy, skin depigmentation, weight gain, fluid retention, adrenal suppression, osteoporosis resulting in fractures, avascular necrosis of the hip, cataracts, bleeding gastric ulcer, worsening pain and failure to relieve pain were discussed and the patient is agreeable to proceeding at this time. 06/23/2024 Sciatica, right side (ICD-10 - M54.31) 06/26/2024 Spondylosis without myelopathy or radiculopathy, lumbar region (ICD-10 - M47.816) 06/26/2024 Spondylosis without myelopathy or radiculopathy, lumbosacral region (ICD-10 - M47.817) 07/06/2024 Sciatica, right side (ICD-10 - M54.31) 07/06/2024 Radiculopathy, lumbar region (ICD-10 - M54.16) 07/06/2024 Spondylosis without myelopathy or radiculopathy, lumbar region (ICD-10 - M47.816) schedule a bilateral L3-5 medial branch nerve block as a diagnostic and potentially therapeutic endeavor to isolate the source of the patient's facet-generated low back pain originating from the L4-5 and L5-S1 facet joints and to ultimately perform radiofrequency ablation for more durable pain relief. The risks of this procedure including pain, bleeding, infection, nerve damage, spinal cord injury, paralysis, total spinal anesthesia resulting in cardiopulmonary arrest/, respiratory distress requiring intubation, neuritis after radiofrequency ablation, hyperglycemia, insomnia, hair loss, muscle atrophy, skin depigmentation, weight gain, fluid retention, adrenal suppression, osteoporosis resulting in fractures, avascular necrosis of the hip, cataracts, bleeding gastric ulcer, worsening pain and failure to relieve pain were discussed and the patient is agreeable to proceeding at this time. 05/16/2024 Other intervertebral disc degeneration, lumbar region with discogenic back pain and lower extremity pain (ICD-10 - M51.362) 06/23/2024 Radiculopathy, lumbar region (ICD-10 - M54.16) 05/29/2024 Sciatica, right side (ICD-10 - M54.31) 05/01/2024 Osseous stenosis of neural canal of [...] and lower extremity pain (ICD-10 - M51.362) 06/23/2024 Other intervertebral disc degeneration, lumbar region with discogenic back pain and lower extremity pain (ICD-10 - M51.362) 07/06/2024 Other intervertebral disc degeneration, lumbar region with discogenic back pain and lower extremity pain (ICD-10 - M51.362) 07/06/2024 Osseous stenosis of neural canal of lumbar region (ICD-10 - M99.33) 05/29/2024 Osseous stenosis of neural canal of lumbar region (ICD-10 - M99.33) 06/23/2024 Osseous stenosis of neural canal of lumbar region (ICD-10 - M99.33) 05/16/2024 Sacroiliitis, not elsewhere classified (ICD-10 - M46.1) 02/03/2024 custodial (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 of non-steroidal anti-inflammatorie s (NSAID) (ICD-10 - Z79.1) Patient was instructed to hold NSAIDs (Aleve) for 4 days prior to their procedure. Patient verbalized understanding. 04/26/2024 intermediate teacher (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 of non-steroidal anti-inflammatorie s (NSAID) (ICD-10 - Z79.1) 01/13/2024 Sacroiliitis, not elsewhere classified (ICD-10 - M46.1) 05/29/2024 Sacroiliitis, not elsewhere classified (ICD-10 - M46.1) 05/16/2024 intermediate teacher (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 of non-steroidal anti-inflammatorie s (NSAID) (ICD-10 - Z79.1) 07/06/2024 Sacroiliitis, not elsewhere classified (ICD-10 - M46.1) 06/23/2024 Sacroiliitis, not elsewhere classified (ICD-10 - M46.1) 06/23/2024 Spondylosis without myelopathy or radiculopathy, lumbosacral region (ICD-10 - M47.817) 05/29/2024 custodial (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 of non-steroidal anti-inflammatorie s (NSAID) (ICD-10 - Z79.1) 07/06/2024 Spondylosis without myelopathy or radiculopathy, lumbosacral region (ICD-10 - M47.817) 11/22/[address] Chalo mercado [...] As a result of our discussion, Dr. iGll has determined the above assessment and directed [...] with Patient and Medical Decision Makin minutes 06/23/2024 Other The above-named patient was evaluated in [...] with Patient and Medical Decision Makin minutes 07/06/2024 Other The above-named patient was evaluated in [...] Medical Decision Makin minutes PLAN OF TREATMENT Next Appt Details Provider Name:Marck Jasper courtney, 07/14/2024 11:30:00 AM, [address] [place] [address], [phone], Insurance Providers Payer Name Payer Address Payer Phone Subscriber Number Group Number Insured Name Patient Relationship to Insured Coverage Start Date Coverage End Date [facility] [employer] MED[employer]VANTAGE (PPO) [address] [address] [place] [address] [phone] [id number] BELLE ZIMMER Self - patient is the insured MEDICAL (GENERAL) HISTORY Medical History History ICD Code Melanoma Depression Hypertension Hypothyroidism Surgical History Surgery Date(Month/Year) Right SIJ fusion-Dr. Valdez 2019 Right partial knee replacement Cholecystectomy
--- OUTSIDE RECORDS SUMMARY | 2024-07-10 11:47 | XMS_ITS | Encounter Summary ---
Author Organization [facility] Address 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
--- OUTSIDE RECORDS SUMMARY | 2024-07-10 11:47 | XMS_ITS ---
Author Organization [facility] Address [address] [place] [address] [place] [address] Care Team Providers Care Personal Finance Instructor Name Role Phone ARMANDO SYLVESTER, RAMAKRISHNA Primary Care Provider Marck Chambers Unavailable [phone] MD CANDI, PAULY Unavailable Unavailable ALLERGIES No Known Allergies REASON FOR VISIT Follow Up, Right > Left Low Back Pain MEDICATIONS Medication SIG (Take, Route, Frequency, Duration) Notes Start Date End Date Status Zolpidem Tartrate 10 MG TAKE 1 TABLET BY MOUTH EVERY DAY AT BEDTIME Oral for 90 Active Breo Ellipta 200-25 MCG/ACT Inhalation for 30 Active Levothyroxine Sodium 50 MCG Oral for 90 Active Escitalopram Oxalate 10 MG TAKE 1 TABLET BY MOUTH DAILY AT BEDTIME Oral for 90 Active metFORMIN HCl ER 500 MG TAKE 1 TABLET BY MOUTH DAILY Oral for 90 Active Aleve 220 MG 1 tablet with food o r milk as needed Orally every 12 hrs Active traZODone HCl 50 MG TAKE 1 TABLET BY JONNY TH EVERY DAY AT BEDTIME Oral for 90 Active Losartan Potassium-HCTZ 50-12.5 MG Oral for 90 Active SOCIAL HISTORY Tobacco Use: Social History Observation Description Date Details (start date - stop date) Former Smoker NA - NA Sex Assigned At : Social History Observation Description Sex Assigned At Unknown Tobacco Use/Smoking Question Answer Notes Are you a former smoker How long has it been since you last smoked? 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 The patient is a former smoker. She quit smoking in 1995. She denies tobacco, alcohol, or illicit drug abuse. PROBLEMS Problem Type ICD Code Onset Dates Problem Status W/U Status Risk SNOMED Code Notes Problem Spondylosis without myelopathy or radiculopathy, lumbar region (M47.816) Active confirmed Problem Spondylosis without myelopathy or radiculopathy, lumbosacral region (M47.817) Active confirmed Lumbosacral spondylosis without myelopathy (disorder) (24728185) VITAL SIGNS Blood pressure systolic 138 mm Hg 06/24/19 25 Blood pressure diastolic 87 mm Hg 025 Heart Rate 66 /min 06/23/2024 Respiratory Rate 16 /min 06/23/2024 Height 5 ft 2 in in 06/23/2024 Weight 209 lbs 06/23/2024 BMI 38.22 kg/m2 06/23/2024 Encounters Encounter Location Date Provider Diagnosis [facility] [address] [facility] [place] [address] 06/23/2024 Marck Gill Sciatica, right side M54.31 ; [...] Treatment Notes Treatment Clinical Notes Section Notes 06/23/2024 Sciatica, right side (ICD-10 - M54.31) 06/23/2024 Spondylosis without myelopathy or radiculopathy, lumbar [...] agreeable to proceeding at this time. 06/23/2024 Radiculopathy, lumbar region (ICD-10 - M54.16) 06/23/2024 Other intervertebral disc degeneration, lumbar region with discogenic back pain and lower extremity pain (ICD-10 - M51.362) 06/23/2024 Osseous stenosis of neural canal of lumbar region (ICD-10 - M99.33) 06/23/2024 Sacroiliitis, not elsewhere classified (ICD-10 - M46.1) 06/23/2024 Spondylosis without myelopathy or radiculopathy, lumbosacral region (ICD-10 - M47.817) 06/23/2024 Other The above-named patient was evaluated [...] PLAN OF TREATMENT Treatment Notes Assessment Notes Spondylosis without myelopat hy or radiculopathy, lumbar region schedule a bilateral L3-5 medial branch nerve [...] Makin minutes Next Appt Details Follow Up: bilateral L3-5 MB NB, Reason: Provider Name:Marck courtney, 07/14/2024 11:30:00 AM, [address] [place], [address], Progress Notes * Examination Category Sub-Category Detail Notes Category Not es Examination/ Pre-Anesthesia Assessment General: The patient is alert and oriented X 3 in moderate distress secondary to [...] patient's typical axial low back pain. Yuri's, Rangeley's and Gaenslen's are positive bilaterally. There is [...] of Present Illness) Category Sub-Category Detail Notes Category Not es Pain Management Radiographic Imaging An MRI lumb [...]
--- OUTSIDE RECORDS SUMMARY | 2024-07-10 11:47 | XMS_ITS | Encounter Summary ---
Author Organization [facility] Address [address] [place] [address] Care Team Providers Care Sports Marketer Name Role Phone Pedro Hernandez MD Primary Care Provider [phone]- [phone] Encounter Details Date Type Department Care Team (Late st Contact Info) Description 01/25/2020 Lab Requisition [facility] DermPath Lab [address] [facility] [place] [address] Radha Navarrete MD [address] [facility] [address] [place] [address] Social History Tobacco Use Types Packs/Day Years Used Date Smoking Tobacco: Former Alcohol Use Standard Drinks/Week Comments Yes 0 (1 standard drink = 0.6 oz pur e alcohol) Comments Unknown Sex and Gender Information Value Date Recorded Sex Assigned at Not on file Legal Sex Female 5:44 PM [facility] Gender Identity Not on file Sexual Orientation Not on file documented as of this encounter Plan of Treatment Not on file documented as of this encounter Procedures Procedure Name Priority Date/Time Associated Diagnosis Comments DERMATOPATHOLOGY Routine 01/24/2020 12:0 0 AM [facility] documented in this encounter Results * DERMATOPATHOLOGY (01/24/2020 12:00 AM [facility]) Case Report Dermatopathology Report Case: [id number] Authorizing Provider: Radha Navarrete MD Collected: 01/24/2020 12:00 AM Ordering Location: [facility] Derm[facility] Lab Received: 01/25/2020 10:10 AM Pathologist: Lavon Dan MD Specimen: Skin, left FA 0 12:49 PM [facility]MAT[facility] Final Diagnosis Specimen A. SKIN, left FA: HYPERPLASTIC (HYPERTROPHIC) ACTINIC KERATOSIS (L57.0) 0 12:49 PM [facility] DERMATOPATHOLOGY LABORATORY at [address] [facility] Clinical History Fouke papule, ISK vs BCC. 0 12:49 PM [facility] DERMATOPATHOLOGY LABORATORY Gross Description Specimen A: Received is one formalin filled container labeled with the patient's name and designated left FA. The specimen consists of a shave measuring [id number]. Jar 0. 0 12:49 PM [facility] DERMATOPATHOLOGY LABORATORY Microscopic Description Specimen A. SKIN, left FA: There is hyperkeratosis alternating with parakeratosis. There is epidermal hyperplasia with disorderly maturation of keratinocytes with nuclear pleomorphism confined to the lower half of the epidermis. 0 12:49 PM [facility] DERMATOPATHOLOGY LABORATORY Disclaimer An external and internal positive and negative controls are appropriate for the histochemical, immunohistochemical and immunofluorescence stain(s) in this case (if any), except where stated explicitly. The performance characteristics of the stain(s) cited in this report were developed and its performance characteristic determined by the Dermatopathology Laboratory at [facility], directed by Dr. Rebeca Dan. These tests need not be, and therefore are not, approved by the [place] Food and Drug Administration. The tests are used for clinical purposes. Billing Codes Specimen Charges Stain Charges 39974 1 0 12:49 PM [facility] DERMATOPATHOLOGY LABORATORY Embedded Images 0 12:49 PM [facility] DERMATOPATHOLOGY LABORATORY Pathology/Cytolog y TISSUE SPECIMEN FROM SKIN / Unknown 01/24/2020 01/25/2020 10:10 AM [facility] us Radha Navarrete MD LAB - PATHOLOGY/CYTOLOGY ORD ERABLES Final Result DERMATOPATHOLOGY LABORATORY [facility] - Department of Dermatology [facility] Medicine [address] [place] [address], [address] [place] [address], [facility] [phone] documented in this encounter Visit Diagnoses Not on filedocumented in this encounter Care Teams Sports Marketer Relationship Specialty Start Date End Date Pedro Hernandez MD [facility] [place] [address] PCP - General 04/30/14 documented as of this encounter
--- OUTSIDE RECORDS SUMMARY | 2024-07-10 11:47 | XMS_ITS | Clinical Summary ---
Author Organization [facility] Address [address] [place] [address] Care Team Providers Care Solar Installation Helper Name Role Phone Pedro Hernandez MD Primary Care Provider +1- [phone] Source Comments [facility],non-owned Affiliates and Associated Physician Practices is amultiple site organization consisting of ambulatory clinics and hospital sitesin [place], [place], [place] and [place]. This disclosure is being madepursuant to the Care Everywhere program and may not contain all information available regarding this patient. 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 Gender Identity Not on file Sexual Orientation [...] 1:54 PM CDT Height 160 cm (5' 3) 11/30/2014 1:54 PM CDT Body Mass Index [...] Comments DERMATOPATHOLOGY Routine 04/13/2024 10:0 4 AM MURAL ARTIST from Last 3 Months Results * DERMATOPATHOLOGY (04/13/2024 10:04 AM MURAL ARTIST) Case Report Dermatopathology Report Case: [id number] Authorizing Provider: Radha Navarrete MD Collected: 04/13/2024 10:04 AM Ordering Location: [facility] - Received: 04/14/2024 10:21 AM DermPath [...] characteristic determined by the Dermatopathology Laboratory at [facility], directed by Dr. Rebeca Dan. These tests need not be, and therefore are not, approved by the [place] Food and Drug Administration. The tests are used for clinical purposes. Billing Codes Specimen Charges Stain Charges 46186 1 1:41 PM CDT DERMATOPATHOLOGY LABORATORY Embedded Images 1:41 PM CDT DERMATOPATHOLOGY LABORATORY Pathology/Cytolo gy TISSUE SPECIMEN FROM SKIN / Unknown 04/13/2024 10:04 AM MURAL ARTIST 04/14/2024 10:21 AM MURAL ARTIST us Radha Navarrete MD LAB - PATHOLOGY/CYTOLOGY ORD ERABLES Final Result DERMATOPATHOLOGY LABORATORY [facility] - Department of Dermatology [place] [address] [facility] [place], [address] [place] [address], [facility] [phone] from Last 3 Months Insurance [address]ICARE [facility] MANAGED MEDICARE ADV SELF PAY NO INSURANCE Member Subscriber Plan / Payer (Ef fective for All Dates) Name:Belle Foster Member ID:Not on file Relation to Subscriber:Not on file Name:BELLE FOSTER Subscriber ID:Not on file Address: [address] [place] [address] Payer ID:Not on file Group ID:Not on file Type:Self Pay Address: [facility] MANAGED MEDICARE ADV SELF PAY NO INSURANCE Member Subscriber Plan / Payer (Ef fective for All Dates) Name:Belle Foster Member ID:Not on file Relation to Subscriber:Not on file Name:BELLE FOSTER Subscriber ID:Not on file Address: [address] [place] [address] Payer ID:Not on file Group ID:Not on file Type:Self Pay Address: [place], [place] [employer] MANAG[place] [address] MEDICARE [place] Member Subscriber Plan / Payer (Ef fective for All Dates) Name:Belle Foster Relation to Subscriber:Self Name:FOSTER,BELLE Isabel Payer ID:Not on file Group ID:Not on file Type:[facility] Address: [facility] [place] [address] MEDICARE [place] [facility] Subscriber Plan / Payer (Ef fective for All Dates) Name:Belle Foster Relation to Subscriber:Self Name:BELLE FOSTER Payer ID:Not on file Group ID:Not on file Type:[facility] Address: [facility] [place] [address] MEDICARE [place]IC[place] Member Subscriber Plan / Payer (Ef fective for All Dates) Name:Belle Foster Relation to Subscriber:Self Name:BELLE FOSTER Payer ID:Not on file Group ID:Not on file Type:[facility] Address: [facility] [place] [address] MEDICARE [place] MED[place] MEDICARE [place] MEDICARE [employer] [place] MEDICARE [facility] MEDICARE [facility] MEDICARE [employer] [place]ARE [place] Member Subscriber Plan / Payer (Ef fective for All Dates) Name:Belle Foster Relation to Subscriber:Self Name:CRISTIANBELLE Isabel Payer ID:Not on file Group ID:Not on file Type:[facility] Address: [facility] [place] [address] Care Teams Solar Installation Helper Relationship Specialty Start Date End Date Pedro Hernandez MD [address] [place] [phone] PCP - General 04/30/14
--- OUTSIDE RECORDS SUMMARY | 2024-07-10 11:47 | XMS_ITS | Encounter Summary ---
Author Organization [facility] Address [address] [facility] [place] [address] Care Team Providers Care Ticker Maintainer Name Role Phone Pedro Hernandez MD Primary Care Provider +1- [phone] Encounter Details Date Type Department Care Team (Late st Contact Info) Description 11/24/2018 Lab Requisition [facility] DermPath Lab [address] [facility], [place] [address] Radha Navarrete MD [address] [facility] [address] [place] [address] Social History Tobacco Use Types Packs/Day Years Used Date Smoking Tobacco: Former Alcohol Use Standard Drinks/Week Comments Yes 0 (1 standard drink = 0.6 oz pur e alcohol) Comments Unknown Sex and Gender Information Value Date Recorded Sex Assigned at Not on file 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 Gender Identity Not on file Sexual Orientation Not on file documented as of this encounter Plan of Treatment Not on file documented as of this encounter Procedures Procedure Name Priority Date/Time Associated Diagnosis Comments DERMATOPATH TECHNICAL REPORT Routine 11/24/2018 12:00 AM CDT documented in this encounter Results * DERMATOPATH TECHNICAL REPORT (11/24/2018 12:00 AM CDT) Case Report Dermatopathology Report Case: [id number] Authorizing Provider: Radha Navarrete MD Collected: 11/24/2018 12:00 AM Ordering Location: [facility] DermPath Lab Received: 11/24/2018 11:32 AM Pathologist: Lavon Dan MD Specimen: Skin, right back 4:52 PM CDT DERMATOPATHOLOGY LABORATORY Addendum 2 At the request of the diagnosing physician, the technical component for HMB-45 was performed by [facility] Dermatopathology Laboratory. 4:52 PM CDT DERMATOPATHOLOGY LABORATORY Addendum electronically signed by Lavon Dan MD on 12/01/2018 at 1652 CDT Addendum 1 At the request of the diagnosing physician, the technical component for MART-1/Melan A was performed by [facility] Dermatopathology Laboratory. 4:52 PM CDT DERMATOPATHOLOGY LABORATORY Addendum electronically signed by Lavon Dan MD on 11/29/2018 at 1755 CDT Clinical History LPLK vs BCC. [place] scaly papule. 4:52 PM CDT DERMATOPATHOLOGY LABORATORY Gross Description Specimen A: Received is one formalin filled container labeled with the patient's name and designated right back. The specimen consists of a shave measuring [id number]. Jar 0. [facility] Dermatopathology [facility] performed the technical component only. 4:52 PM CDT DERMATOPATHOLOGY LABORATORY Embedded Images 4:52 PM CDT DERMATOPATHOLOGY LABORATORY DISCLAIMER An external and internal [...] are used for clinical purposes. 4:52 PM CDT DERMATOPATHOLOGY LABORATORY at 1324 CDT Pathology/Cytolog y TISSUE SPECIMEN FROM SKIN / Unknown 11/24/2018 11/24/2018 11:32 AM CDT us Radha Navarrete MD LAB - PATHOLOGY/CYTOLOGY ORD ERABLES Edited Result - Final DERMATOPATHOLOGY LABORATORY [facility] - Department of Dermatology [address] [place] [address], 5th Floor Lab [address] [phone] documented in this encounter Visit Diagnoses Not on filedocumented in this encounter Care Teams Ticker Maintainer Relationship Specialty Start Date End Date Pedro Hernandez MD [address] [place] [phone] PCP - General 04/30/14 documented as of this encounter
--- OUTSIDE RECORDS SUMMARY | 2024-07-10 11:48 | XMS_ITS | Encounter Summary ---
Author Organization [facility] Address [address] [place] [address] Attn: Epic Prelude ADT [place] [address] Care Team Providers Care Orthodontist Assistant Name Role Phone Pedro Hernandez MD Primary Care Provider +1- [phone] Encounter Details Date Type Department Care Team (Late st Contact Info) Description 09/04/1992 Outpatient Historical Kin Teran MD [address] [facility] [address] [place] [phone] Social History Tobacco Use Types Packs/Day Years Used Date Smoking Tobacco: Never Assessed Comments Unknown Sex and Gender Information Value Date Recorded Sex Assigned at Not on file 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
--- OUTSIDE RECORDS SUMMARY | 2024-07-10 11:48 | XMS_ITS ---
Author Organization [facility] Address [address] [place] [address] [place] [phone] Care Team Providers Care Graphics Software Engineer Name Role Phone ARMANDO SYLVESTER, RAMAKRISHNA Primary Care Provider Marck Chambers Unavailable [phone] MD CANDI, PAULY Unavailable Unavailable ALLERGIES No [...] Potassium-HCTZ 50-12.5 MG Oral for 90 Active Escitalopram Oxalate 10 MG TAKE 1 TABLET BY MOUTH DAILY AT BEDTIME Oral for 90 Active Zolpidem Tartrate 10 MG TAKE 1 TABLET BY MOUTH EVERY DAY AT BEDTIME Oral for 90 Active Breo Ellipta 200-25 MCG/ACT Inhalation for 30 Active Aleve 220 MG 1 tablet with [...] denies tobacco, alcohol, or illicit drug abuse. VITAL SIGNS Blood pressure systolic 138 mm Hg 07/07/19 25 Blood pressure diastolic 81 mm Hg 05/29/2 025 Heart Rate 70 /min 07/06/2024 Respiratory Rate 18 /min 07/06/2024 Height 5 ft 2 in in 07/06/2024 Weight 207 lbs 07/06/2024 BMI 37.86 kg/m2 07/06/2024 Encounters Encounter Location Date Provider Diagnosis [facility] [address] [place] [address] 07/06/2024 Marck Gill Sciatica, right side M54.31 [...] Treatment Notes Treatment Clinical Notes Section Notes 07/06/2024 Sciatica, right side (ICD-10 - M54.31) 07/06/2024 Spondylosis without myelopathy or radiculopathy, lumbar [...] is agreeable to proceeding at this time. 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 Yuri's, [place]'s and [place]'s are positive bilaterally. There is [...]
--- OUTSIDE RECORDS SUMMARY | 2024-07-10 11:48 | XMS_ITS ---
Author Organization [facility] Address [address] [place] [address] [place] [address] Care Team Providers Care Career Specialist Name Role Phone ARMANDO SYLVESTER, RAMAKRISHNA Primary Care Provider Marck Chambers Unavailable [phone] MD CANDI, PAULY Unavailable Unavailable REASON FOR VISIT Right > Left Low Back Pain MEDICATIONS [...] as needed Orally every 12 hrs Active VITAL SIGNS Blood pressure systolic 132 mm Hg 06/27/19 25 Blood pressure diastolic 76 mm Hg 025 Heart Rate 67 /min 06/26/2024 Respiratory Rate 16 /min 06/26/2024 Height 5 ft 2 in in 06/26/2024 Weight 209 lbs 06/26/2024 BMI 38.22 kg/m2 06/26/2024 Post procedure YD=RN=305/77 , P=60 ,R= 16Pain= 0/10.Discharged home per ambulatory, in no acute distress. 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 The specific risks of this procedure including pain, bleeding, [...] is agreeable to proceeding at this time. The patient was placed in the prone position on the fluoroscopy table. Standard ASA monitors were applied. The back was prepped and draped in the usual sterile fashion with chlorhexidine 2%/IPA 70%. The bilateral L4 and L5 pedicles as well as the junction of the superior articular process of S1 and the sacral ala were identified with x-ray using an AP view. A 25 gauge 3.5 inch spinal needle was inserted in a gun barrel fashion to the junction of the superior articular process and transverse process at the upper outer quadrant of the pedicle until periosteum was contacted at each level bilaterally. 3 mL of 0.25% Preservative-Free bupivacaine was drawn up. After negative aspiration for blood, air or CSF, 0.5 mL of this solution was injected at each level, blocking the bilateral L3 and L4 medial branch nerves. The bilateral L5 dorsal rami were blocked at the junction of the superior articular process of S1 and the sacral ala in the same fashion. The needles were then removed, the skin was cleaned and band-aids were placed over the puncture sites. The patient tolerated the procedure well, was able to ambulate without difficulty and was monitored for 20 minutes. The patient remained hemodynamically and neurologically stable. No complications were observed. The patient noted a 90% reduction in her typical back pain associated with extension and lateral rotation of the lumbar spine. Postoperative instructions were reviewed with the patient. 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 X-ray time: 12 seconds Progress Notes * Examination Category Sub-Category Detail [...] patient's typical axial low back pain. Yuri's, [place]'s and Ga[place]'s are positive bilaterally. There is [...] foraminal stenosis Assessment and Follow-up: Follow-up Plan docxiangn marsha:: Yes
== END 2024-07-10 11:12 | disposition home or self-care (01) ==
PROVIDERS: PCP Family Medicine; Visit Provider Nurse Practitioner Family
DX: S49.91XA Unspecified injury of right shoulder and upper arm, initial encounter (principal); X58.XXXA Exposure to other specified factors, initial encounter
CPT/HCPCS: 73030

== ENCOUNTER 2024-09-29 08:54 | Outpatient (CLI) | payer MEDICARE, SELFPAY ==
--- OUTSIDE RECORDS SUMMARY | 1999-03-19 08:15 | XMS_ITS | Continuity of Care Document ---
Author Organization [facility] Address [address] [place] [address] [address] [place] [address] Phone Care Team Providers Care Business Economist Name Role Phone Agee OD, Bogdan Unavailable Unavailable Advance Directives Directive Yes / No Effective Date File Name No Information Encounters Encounter Description Practice Location Reason(s) For Visit Diagnoses Date Provider Providers Copied on Encounter [facility], [address], [place], [place], [id number], [place] tel:[phone] [facility] No Information Mar-0 9-200 0 Agee OD Bogdan. [address] , [address], [place], [address], [place]. tel:[phone] Family History Family Member Type Diagnosis Age At Onset No Information Payers Payer name Insurance type Covered libertarian ID Authoriza tion(s) No Information Social History Type Description Quantity Date Captured Comments Sex Female Smoking Status No Information Chief Complaint And Reason For Visit No Information Reason For Referral Reason For Referral No Information History Of Present Illness Encounter Date Complaint History Of Prese nt Illness No Information Functional Status Date Functional Assessmen t No Information Instructions Date Instruction Additional Infor mation No Information Assessments Type Assessment Date No Information Patient Care Teams Name Effective Dates (start - stop) Status Members No Information
--- OUTSIDE RECORDS SUMMARY | 2024-08-22 06:30 | XMS_ITS ---
Author Organization [facility] Address [address] [place] [address] [place] [phone] Care Team Providers Care Shopfitter Name Role Phone ARMANDO SYLVESTER, RAMAKRISHNA Primary Care Provider Marck Chambers Unavailable [phone] MD CANDI, PAULY Unavailable Unavailable ALLERGIES No Known Allergies REASON FOR VISIT Follow Up, Right > Left Low Back Pain MEDICATIONS Medication SIG (Take, Route, Frequency, Duration) Notes Start Date End Date Status Zolpidem Tartrate 10 MG TAKE 1 TABLET BY MOUTH EVERY DAY AT BEDTIME Oral for 90 Active ALPRAZolam 0.25 MG 1 tablet Oral Twice a day Active Escitalopram Oxalate 10 MG TAKE 1 TABLET BY MOUTH DAILY AT BEDTIME Oral for 90 Active Breo Ellipta 200-25 MCG/ACT Inhalation for 30 Active metFORMIN HCl ER 500 MG TAKE 1 TABLET BY MOUTH DAILY Oral for 90 Active Levothyroxine Sodium 50 MCG Oral for 90 Active Losartan Potassium-HCTZ 50-12.5 MG Oral for 90 Active traZODone HCl 50 MG TAKE 1 TABLET BY JONNY TH EVERY DAY AT BEDTIME Oral for 90 Active Aleve [...] drug abuse. VITAL SIGNS Blood pressure systolic 137 mm Hg 08/23/19 25 Blood pressure diastolic 91 mm Hg 025 Heart Rate 66 /min 08/22/2024 Respiratory Rate 18 /min 08/22/2024 Height 5 ft 2 in in 08/22/2024 Weight 207 lbs 08/22/2024 BMI 37.86 kg/m2 08/22/2024 Encounters Encounter Location Date Provider Diagnosis [facility] [address] [place] [address] 08/22/2024 Marck Gill Spondylosis without myelopathy or radiculopathy, lumbar region M47.816 ; Spondylosis without myelopathy or radiculopathy, lumbosacral region M47.817 ; Radiculopathy, lumbar region M54.16 and Sacroiliitis, not elsewhere classified M46.1 ASSESSMENTS Encounter Date Diagnosis Assessment Notes Treatment Notes Treatment Clinical Notes Section Notes 08/22/2024 Spondylosis without myelopathy or radiculopathy, lumbar region (ICD-10 - M47.816) The patient recently underwent bilateral L3-5 RFA done on 08/01/24 and reports a 85% reduction of her axial low back pain since this procedure. She currently denies a need for any injections or interventions at this time. She would like to return to the office in 1 month for follow-up and reevaluation of her pain at that time. 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 She currently denies a need for any injections or interventions at this time. She would like to return to the office in 1 month for follow-up and reevaluation of her pain at that time. Other The above-named patient was evaluated [...] Makin minutes Next Appt Details Follow Up: 4 Weeks OPV, Reas on: Provider Name:Marck Hutchinson Minesh courtney, 09/29/2024 11:30:00 AM, [address] [place] [address], [phone], Progress Notes * Examination Category Sub-Category Detail [...] patient's typical axial low back pain. Yuri's, [place]'s and Gaenslen's are positive bilaterally. There is [...]
--- OUTSIDE RECORDS SUMMARY | 2024-09-26 05:30 | XMS_ITS ---
Author Organization [facility] Address [address] [place] [address] [place] [phone] Care Team Providers Care Multiple Drum Sander Helper Name Role Phone ARMANDO SYLVESTER, RAMAKRISHNA Primary Care Provider Marck Chambers Unavailable [phone] MD CANDI, PAULY Unavailable Unavailable ALLERGIES No Known Allergies REASON FOR VISIT Follow Up, Right Low Back Pain, Right Lower Extremity Pain MEDICATIONS Medication SIG (Take, Route, Frequency, Duration) Notes Start Date End Date Status ALPRAZolam 0.25 MG 1 tablet Oral Twice a day Active Zolpidem Tartrate 10 MG TAKE 1 TABLET BY MOUTH EVERY DAY AT BEDTIME Oral for 90 Active Breo Ellipta 200-25 MCG/ACT Inhalation for 30 Active Escitalopram Oxalate 10 MG TAKE 1 TABLET BY MOUTH DAILY AT BEDTIME Oral for 90 Active metFORMIN HCl ER 500 MG TAKE 1 TABLET BY MOUTH DAILY Oral for 90 Active Losartan Potassium-HCTZ 50-12.5 MG Oral for 90 Active Aleve 220 MG 1 tablet with food o r milk as needed Orally every 12 hrs Active Levothyroxine Sodium 50 MCG Oral for [...] since you last smoked? > 10 years Alcohol Screen (Audit-C) Question Answer Notes Did you have a drink contain ing alcohol in the past year? Yes How often did you have a dri nk containing alcohol in the past year? Monthly or less (1 point) How many drinks did you have on a typical day when you were drinking in the past year? 1 or 2 drinks (0 point) How often did you have 6 or more drinks on one occasion in the past year? 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 The patient is a former smoker. She quit smoking in 1995. She denies tobacco, alcohol, or illicit drug abuse. VITAL SIGNS Blood pressure systolic 130 mm Hg 09/27/19 25 Blood pressure diastolic 91 mm Hg 025 Heart Rate 64 /min 09/26/2024 Respiratory Rate 18 /min 09/26/2024 Height 5 ft 2 in in 09/26/2024 Weight 206 lbs 09/26/2024 BMI 37.67 kg/m2 09/26/2024 Encounters Encounter Location Date Provider Diagnosis [facility] [address] [place] [phone] 09/26/2024 Marck Gill Spondylosis without myelopathy or radiculopathy, lumbar region M47.816 ; Spondylosis without myelopathy or radiculopathy, lumbosacral region M47.817 ; Radiculopathy, lumbar region M54.16 ; Sacroiliitis, not elsewhere classified M46.1 and shelter (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 of non-steroidal anti-inflammatories (NSAID) Z79.1 ASSESSMENTS Encounter Date Diagnosis Assessment Notes Treatment Notes Treatment Clinical Notes Section Notes 09/26/2024 Spondylosis without myelopathy or radiculopathy, lumbar region (ICD-10 - M47.816) 09/26/2024 Spondylosis without myelopathy or radiculopathy, 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 The risks of [...] is agreeable to proceeding at this time. 09/26/2024 Sacroiliitis, not elsewhere classified (ICD-10 - M46.1) 09/26/2024 shelter (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 of non-steroidal anti-inflammato manoj (NSAID) (ICD-10 - Z79.1) Patient was instructed to hold NSAIDs for 4 days prior to their procedure. Patient verbalized understanding. 09/26/2024 Other The above-named patient was evaluated in [...] PLAN OF TREATMENT Treatment Notes Assessment Notes Radiculopathy, lumbar region Schedule a right L4-5 and L5-S1 transforaminal epidural steroid injection. The risks of [...] is agreeable to proceeding at this time. shelter (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 of n on-steroidal anti-inflammatories (NSAID) Patient was instructed to hold NSAIDs fo r 4 days prior to their procedure. Patient verbalized understanding. Other The above-named patient was evaluated in [...] have occurred. This note was dictated by Chandana Medina, THERMODYNAMICIST-C. Total Time Spent with Patient and Medical Decision Makin minutes Next Appt Details Follow Up: right L4-5 and L5 -S1 TFE, Reason: Provider Name:Marck courtney, 09/29/2024 11:30:00 AM, [address] [facility] [place], [address], Progress Notes * Examination Category Sub-Category Detail [...] patient's typical axial low back pain. Yuri's, [place]'s and Gaenslen's are positive bilaterally. There is [...] and Follow-up: Follow-up Plan documen marsha:: Yes [facility] Quality 2020: [facility] Documented:: Compliant
--- OUTSIDE RECORDS SUMMARY | 2024-09-29 06:30 | XMS_ITS ---
Author Organization [facility] Address [address] [facility] [place] [address] Care Team Providers Care Chief Digital Media Officer Name Role Phone ARMANDO SYLVESTER, RAMAKRISHNA Primary Care Provider Marck Chambers Unavailable [phone] MD CANDI, PAULY Unavailable Unavailable REASON FOR VISIT RT L4-5 + L5-S1 TFE (HOLD ALEVE FOR 4 DAYS) MEDICATIONS Medication SIG (Take, Route, Frequency, Duration) Notes Start Date End Date Status Escitalopram Oxalate 10 MG TAKE 1 TABLET BY MOUTH DAILY AT BEDTIME Oral for 90 Active traZODone HCl 50 MG TAKE 1 TABLET BY JONNY TH EVERY DAY AT BEDTIME Oral for 90 Active Losartan Potassium-HCTZ 50-12.5 MG Oral for 90 Active metFORMIN HCl ER 500 MG TAKE 1 TABLET BY MOUTH DAILY Oral for 90 Active Levothyroxine Sodium 50 MCG Oral for 90 Active Breo Ellipta 200-25 MCG/ACT Inhalation for 30 Active Zolpidem Tartrate 10 MG TAKE 1 TABLET BY MOUTH EVERY DAY AT BEDTIME Oral for 90 Active ALPRAZolam 0.25 MG 1 tablet Oral Twice a day Active Aleve 220 MG 1 tablet with food o r milk as needed Orally every 12 hrs Active Encounters Encounter Location Date Provider Diagnosis [facility] [address] [facility] [place] [address] 09/29/2024 Marck Gill Radiculopathy, lumbar region M54.16 ASSESSMENTS Encounter Date Diagnosis Assessment Notes Treatment Notes Treatment Clinical Notes Section Notes 09/29/2024 Radiculopathy, lumbar region (ICD-10 - M54.16) PLAN OF TREATMENT Next Appt Details Provider Name:Marck courtney, 09/29/2024 11:30:00 AM, [address] [facility] [address], [place], [address], Procedure Notes * Category Sub-Category Detail Notes Transforaminal Epidural Steroid Injection Locati on Right Levels L4-5 & L5-S1 Anesthesia Local without IV sed ation Operative Technique After the risks, melonie efits, alternative treatment options and potential complications related [...] in the prone position on the fluoroscopy table and standard ASA monitors were applied. The back was prepped and draped in the usual sterile fashion with chlorhexidine 2%/IPA 70%. The c-arm was obliqued and tilted to identify the above selected levels. The right L4-5 + L5-S1 neural foramina were identified and a 23 gauge 3.5 inch spinal needle was inserted under fluoroscopic guidance towards the junction of the inferior endplate and superior articular process until the superior articular process was contacted at both levels. A lateral view was taken and the needle tip was advanced into the posterior aspect of the neuroforamen. The subcutaneous structures were anesthetized with 3 mL of 1% Preservative-Free lidocaine during needle placement. An AP view was taken and after negative aspiration for blood, air or CSF, 4 mLs (2 mLs at each level) of Omnipaque 240 contrast dye was injected under live fluoroscopy for an epidurogram showing good spread within the epidural space and along the selected nerve root. No intravascular or intrathecal spread was noted. A solution of 10 mg of Preservative-Free Dexamethasone (10 mg/mL), plus 3 mL of 0.25% Preservative-Free bupivacaine was mixed and after negative aspiration 2 mL of this solution was slowly injected into the epidural space at each level. The needles were removed, the skin was cleaned and band-aids were placed over the puncture sites. The patient tolerated the procedure well, was able to ambulate without difficulty and was monitored for 20 minutes. The patient remained hemodynamically and neurologically stable. No apparent complications were observed. Postoperative instructions were reviewed with the patient. The patient was then discharged home in good condition with a electric screw driver operator. X-ray time: 14 seconds Progress Notes * Examination Category Sub-Category [...] patient's typical axial low back pain. Yuri's, Quinter's and Gaenslen's are positive bilaterally. There is [...] and Follow-up: Follow-up Plan documen marsha:: Yes [facility] Quality 2020: MIPS Documented:: Compliant
--- OUTSIDE RECORDS SUMMARY | 2024-09-29 08:57 | XMS_ITS | Encounter Summary ---
Author Organization [facility] Address [address] [place] [address] Care Team Providers Care Mechanical Product Design Engineer Name Role Phone Pedro Hernandez MD Primary Care Provider [phone]- [phone] Encounter Details Date Type Department Care Team (Latest Contact Info) Description 02/24/1999 Outpatient Historical [facility] Errol Rosa MD [address] [place] [address] Other plastic surgery for unacceptable cosmetic appearance (Primary Dx) Social History Tobacco Use Types Packs/Day Years Used Date Smoking Tobacco: Never Assessed Comments Unknown Sex and Gender Information Value Date Recorded Sex Assigned at Not on file 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
--- OUTSIDE RECORDS SUMMARY | 2024-09-29 08:57 | XMS_ITS | Patient Health Record ---
Author Organization [facility] Address [address] [place] [address] [place] [address] Care Team Providers Care Soda Drier Feeder Name Role Phone ARMANDO SYLVESTER, RAMAKRISHNA Primary Care Provider Marck Chambers Unavailable [phone] MD CANDI, PAULY Unavailable Unavailable ALLERGIES No [...] DAY AT BEDTIME Oral for 90 Active traZODone HCl 50 MG TAKE 1 TABLET BY JONNY TH EVERY DAY AT BEDTIME Oral for 90 Active Losartan Potassium-HCTZ 50-12.5 MG Oral for 90 Active metFORMIN HCl ER 500 MG TAKE 1 TABLET BY MOUTH DAILY Oral for 90 Active Levothyroxine Sodium 50 MCG Oral for 90 Active ALPRAZolam 0.25 MG 1 tablet Oral Twice a day Active Aleve 220 MG 1 tablet with food o r milk as needed Orally every 12 hrs Active PROBLEMS Problem Type ICD Code Onset Dates Problem Status W/U Status Risk SNOMED Code Notes Problem Sacroiliitis, not elsewhere classified (M46.1) Active confirmed Solitary sacroiliitis (032422405) Problem Spondylosis without myelopathy or radiculopathy, lumbar region (M47.816) Active confirmed Lumbosacral spondylosis without myelopathy (50909396) Problem Spondylosis without myelopathy or radiculopathy, lumbosacral region (M47.817) Active confirmed Lumbosacral spondylosis without myelopathy (disorder) (51074574) Problem Radiculopathy, lumbar region (M54.16) Active confirmed Lumbar radiculopathy (554642482) Problem Sciatica, unspecified side (M54.30) Active confirmed Sciatica (27321297) Problem Sciatica, right side (M54.31) Active confirmed Right side sciatica (151260868978935 ) Problem Sciatica, left side (M54.32) Active confirmed Left side sciatica (762039865356382 ) Problem Osseous stenosis of neural canal of lumbar region (M99.33) Active confirmed Spinal stenosis of lumbar region (79105829) Problem Other intervertebral disc degeneration, 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 Blood pressure diastolic 91 mm Hg 09/26/2024 Height 5 ft 2 in in 09/26/2024 Blood pressure systolic 130 mm Hg 09/26/2024 Weight 206 lbs 09/26/2024 BMI 37.67 kg/m2 09/26/2024 Encounters Encounter Location Date Provider Diagnosis [facility] [address] [place] [address] 11/22/2023 Marck Stynowick Radiculopathy, lumba r region M54.16 ; Other intervertebral disc degeneration, lumbar region with discogenic back pain and lower extremity pain M51.362 ; Osseous stenosis of neural canal of lumbar region M99.33 and Sacroiliitis, not elsewhere classified M46.1 [facility] [address] [facility] [place] [facility] [place] [address] 11/29/2023 Marck Stynowick Radiculopathy, lumba r region M54.16 ; Other intervertebral disc degeneration, lumbar region with discogenic back pain and lower extremity pain M51.362 and Osseous stenosis of neural canal of lumbar region M99.33 [facility] [address] [facility] [place] [address] 12/16/2023 Marck Stynowick Radiculopathy, lumba r region M54.16 ; Other intervertebral disc degeneration, lumbar region with discogenic back pain and lower extremity pain M51.362 ; Osseous stenosis of neural canal of lumbar region M99.33 and Sacroiliitis, not elsewhere classified M46.1 [facility] [address] [place] [address], [place] [address] 01/13/2024 Marck Stynowick Radiculopathy, lumba r region M54.16 ; Sciatica, right side M54.31 ; Other intervertebral disc degeneration, lumbar region with discogenic back pain and lower extremity pain M51.362 ; Osseous stenosis of neural canal of lumbar region M99.33 and Sacroiliitis, not elsewhere classified M46.1 [facility] [address] [place] [address] 01/17/2024 Marck Stynowick Sciatica, right side M54.31 [facility] [address] [place] [address] 02/03/2024 Marck Stynowick Radiculopathy, lumba r region M54.16 ; Other intervertebral disc degeneration, lumbar region with discogenic back pain and lower extremity pain M51.362 ; Osseous stenosis of neural canal of lumbar region M99.33 ; Sacroiliitis, not elsewhere classified M46.1 and terminologist (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 of non-steroidal anti-inflammatories (NSAID) Z79.1 [facility] [address] [place] [phone] 03/13/2024 Marck Stynowick Radiculopathy, lumba r region M54.16 [facility] [address] [place] [address] 04/26/2024 Marck Stynowick Radiculopathy, lumba r region M54.16 ; Other intervertebral disc degeneration, lumbar region with discogenic back pain and lower extremity pain M51.362 ; Osseous stenosis of neural canal of lumbar region M99.33 ; Sacroiliitis, not elsewhere classified M46.1 and [facility] (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 of non-steroidal anti-inflammatories (NSAID) Z79.1 [facility] [address] [place] [address] 05/01/2024 Marck Stynowick Radiculopathy, lumba r region M54.16 ; Other intervertebral disc degeneration, lumbar region with discogenic back pain and lower extremity pain M51.362 and Osseous stenosis of neural canal of lumbar region M99.33 [facility] [address] [place] [address] 05/16/2024 Marck Stynowick Radiculopathy, lumba r region M54.16 ; Sciatica, right side M54.31 ; Other intervertebral disc degeneration, lumbar region with discogenic back pain and lower extremity pain M51.362 ; Osseous stenosis of neural canal of lumbar region M99.33 ; Sacroiliitis, not elsewhere classified M46.1 and terminologist (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 of non-steroidal anti-inflammatories (NSAID) Z79.1 [facility] [address] [place] [address] 05/22/2024 Marck Stynowick Sciatica, right side M54.31 [facility] [address] [place] [phone] 05/29/2024 Marck Stynowick Radiculopathy, lumba r region M54.16 ; Sciatica, right side M54.31 ; Other intervertebral disc degeneration, lumbar region with discogenic back pain and lower extremity pain M51.362 ; Osseous stenosis of neural canal of lumbar region M99.33 ; Sacroiliitis, not elsewhere classified M46.1 and terminologist (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 of non-steroidal anti-inflammatories (NSAID) Z79.1 [facility] [address] [place] [address] 06/23/2024 Marck Stynowick Sciatica, right side M54.31 [...] radiculopathy, lumbosacral region M47.817 [facility] [address] [place] [address] 06/26/2024 Marck Stynowick Spondylosis without myelopathy or radiculopathy, lumbar region M47.816 and Spondylosis without myelopathy or radiculopathy, lumbosacral region M47.817 [facility] [address] [place] [address] [place] [address] 07/06/2024 Marck Stynowick Sciatica, right side M54.31 ; [...] radiculopathy, lumbosacral region M47.817 [facility] [address] [place] [address] [place] [address] 07/14/2024 Marck Stynowick Spondylosis without myelopathy or radiculopathy, lumbar region M47.816 and Spondylosis without myelopathy or radiculopathy, lumbosacral region M47.817 [facility] [address] [place] [address], [place] [address] 07/24/2024 Marck Stynowick Spondylosis without myelopathy or radiculopathy, lumbar region M47.816 ; Spondylosis without myelopathy or radiculopathy, lumbosacral region M47.817 ; Radiculopathy, lumbar region M54.16 and Sacroiliitis, not elsewhere classified M46.1 [facility] [address] [place] [address] [facility] [place] [address] 08/01/2024 Marck Stynowick Spondylosis without myelopathy or radiculopathy, lumbar region M47.816 and Spondylosis without myelopathy or radiculopathy, lumbosacral region M47.817 [facility] [address] [place] [address] [place] [address] 08/02/2024 Marck Stynowick [facility] [address] [place] [address] [place] [address] 08/22/2024 Marck Stynowick Spondylosis without myelopathy or radiculopathy, lumbar region M47.816 ; Spondylosis without myelopathy or radiculopathy, lumbosacral region M47.817 ; Radiculopathy, lumbar region M54.16 and Sacroiliitis, not elsewhere classified M46.1 [facility] [address] [place] [address] [place] [address] 09/26/2024 Marck Stynowick Spondylosis without myelopathy or radiculopathy, lumbar region M47.816 ; Spondylosis without myelopathy or radiculopathy, lumbosacral region M47.817 ; Radiculopathy, lumbar region M54.16 ; Sacroiliitis, not elsewhere classified M46.1 and terminologist (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 of non-steroidal anti-inflammatories (NSAID) Z79.1 [facility] [address] [place] [address] [place] [address] 09/29/2024 Marck Stynowick Radiculopathy, lumba r region M54.16 ASSESSMENTS Encounter Date Diagnosis Assessment [...] 07/06/2024 Sciatica, right side (ICD-10 - M54.31) 07/14/2024 Spondylosis without myelopathy or radiculopathy, lumbar region (ICD-10 - M47.816) 07/14/2024 Spondylosis without myelopathy or radiculopathy, lumbosacral region (ICD-10 - M47.817) 07/24/2024 Spondylosis without myelopathy or radiculopathy, lumbar region (ICD-10 - M47.816) Schedule a bilateral L3-5 radiofrequency ablation for a more durable treatment of the patient's facet-generated low back pain originating from the L4-5 and L5-S1 facet joints. The risks of this procedure including pain, [...] is agreeable to proceeding at this time. 07/24/2024 Spondylosis without myelopathy or radiculopathy, lumbosacral region (ICD-10 - M47.817) 08/22/2024 Spondylosis without myelopathy or radiculopathy, lumbar [...] radiculopathy, lumbosacral region (ICD-10 - M47.817) 09/26/2024 Spondylosis without myelopathy or radiculopathy, lumbar region (ICD-10 - M47.816) 09/26/2024 Spondylosis without myelopathy or radiculopathy, lumbosacral region (ICD-10 - M47.817) 08/01/2024 Spondylosis without myelopathy or radiculopathy, lumbar region (ICD-10 - M47.816) 08/01/2024 Spondylosis without myelopathy or radiculopathy, lumbosacral region (ICD-10 - M47.817) 09/29/2024 Radiculopathy, lumbar region (ICD-10 - M54.16) 09/26/2024 Radiculopathy, lumbar region (ICD-10 - M54.16) [...] is agreeable to proceeding at this time. 08/22/2024 Radiculopathy, lumbar region (ICD-10 - M54.16) 07/24/2024 Radiculopathy, lumbar region (ICD-10 - M54.16) 07/06/2024 Radiculopathy, lumbar region (ICD-10 - M54.16) [...] and lower extremity pain (ICD-10 - M51.362) 07/24/2024 Sacroiliitis, not elsewhere classified (ICD-10 - M46.1) 09/26/2024 Sacroiliitis, not elsewhere classified (ICD-10 - M46.1) 07/06/2024 Other intervertebral disc degeneration, lumbar region with discogenic back pain and lower extremity pain (ICD-10 - M51.362) 08/22/2024 Sacroiliitis, not elsewhere classified (ICD-10 - M46.1) 09/26/2024 [facility] (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 of non-steroidal anti-inflammatorie s (NSAID) (ICD-10 - Z79.1) Patient was instructed to hold NSAIDs for 4 days prior to their procedure. Patient verbalized understanding. 07/06/2024 Osseous stenosis of neural canal of lumbar region (ICD-10 - M99.33) 05/29/2024 Osseous stenosis of neural canal of lumbar region (ICD-10 - M99.33) 06/23/2024 Osseous stenosis of neural canal of lumbar region (ICD-10 - M99.33) 05/16/2024 Sacroiliitis, not elsewhere classified (ICD-10 - M46.1) 02/03/2024 terminologist (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 of non-steroidal anti-inflammatorie s (NSAID) (ICD-10 - Z79.1) Patient was instructed to hold NSAIDs (Aleve) for 4 days prior to their procedure. Patient verbalized understanding. 04/26/2024 terminologist (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 of non-steroidal anti-inflammatorie s (NSAID) (ICD-10 - Z79.1) 01/13/2024 Sacroiliitis, not elsewhere classified (ICD-10 - M46.1) 05/29/2024 Sacroiliitis, not elsewhere classified (ICD-10 - M46.1) 05/16/2024 [facility] (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 of non-steroidal anti-inflammatorie s (NSAID) (ICD-10 - Z79.1) 07/06/2024 Sacroiliitis, not elsewhere classified (ICD-10 - M46.1) 06/23/2024 Sacroiliitis, not elsewhere classified (ICD-10 - M46.1) 06/23/2024 Spondylosis without myelopathy or radiculopathy, lumbosacral region (ICD-10 - M47.817) 05/29/2024 [facility] (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 of non-steroidal anti-inflammatorie s (NSAID) [...] with Patient and Medical Decision Makin minutes 07/24/2024 Other The above-named patient was evaluated in [...] with Patient and Medical Decision Makin minutes 08/01/2024 Other The patient voiced understanding of the treatment plan and all questions were addressed. Obtain informed consent: Bilateral Lumbar 3-5 Radiofrequency Ablation under fluoroscopy. Monitor pulse, blood pressure and SaO2 before, after and as needed during procedure. Verify if the patient is currently taking blood thinner. Verify patients is not currently on antibiotics for infection. Patient may drive home. CARE PLAN: Knowledge deficit: Will verbalize understanding of the proposed procedure, including risk of electrical burn, complications and benefits of the procedure? Will the patient exhibit understanding of the discharge instructions? Safety: The potential for injury related to surgery was assessed; Fire risk score determined, test completed if applicable. Risk for injury related to wrong patient, site, procedure. TIME OUT for safety of patient and includes patient name, , procedure site, side, level, allergies, blood thinners, antibiotics, surgical counts, consents correct and signed etc. Risk for infection: Implements aseptic technique, protects from cross-contaminatio n, performs skin preparations. Pain/Discomfort: Patient verbalizes acceptable level of pain relief prior to discharge and the ability to engage in desired activity. I HAVE REVIEWED THE PATIENT'S MEDICATION LIST AND HAVE RECONCILED THE ABOVE MEDICATIONS. PATIENT GOALS AND SAFETY CONCERNS HAVE BEEN ADDRESSED. RAMAN initials NOHEMY. 08/22/2024 Other The above-named patient was evaluated [...] with Patient and Medical Decision Makin minutes 09/26/2024 Other The above-named patient was evaluated [...] OF TREATMENT Next Appt Details Provider Name:Marck Hutchinson Minesh courtney, 09/29/2024 11:30:00 AM, [address] [place], [address], Insurance Providers Payer Name Payer Address Payer Phone Subscriber Number Group Number Insured Name Patient Relationship to Insured Coverage Start Date Coverage End Date [facility] MEDIC[facility] ADVANTAGE (PPO) [address] [address] [place] [address] [phone] [id number] BELLE ZIMMER Self - patient is the insured MEDICAL (GENERAL) HISTORY Medical History History ICD Code Melanoma Depression Hypertension Hypothyroidism Surgical History Surgery Date(Month/Year) Right SIJ fusion-Dr. Valdez 2019 Right partial knee replacement Cholecystectomy
--- OUTSIDE RECORDS SUMMARY | 2024-09-29 08:57 | XMS_ITS | Encounter Summary ---
Author Organization [facility] Address 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
--- OUTSIDE RECORDS SUMMARY | 2024-09-29 08:58 | XMS_ITS | Encounter Summary ---
Author Organization [facility] Address [address] [place] [address] Attn: Epic Prelude ADT QUITA [place] [address] Care Team Providers Care Quitline Counselor Name Role Phone Pedro Hernandez MD Primary Care Provider +1- [phone] Encounter Details Date Type Department Care Team (Late st Contact Info) Description 09/04/1992 Outpatient Historical Kin Teran MD [address] [facility] [address] [place] [address] Social History Tobacco Use Types Packs/Day Years Used Date Smoking Tobacco: Never Assessed Comments Unknown Sex and Gender Information Value Date Recorded Sex Assigned at Not on file 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
--- OUTSIDE RECORDS SUMMARY | 2024-09-29 08:58 | XMS_ITS | Encounter Summary ---
Author Organization [facility] Health Address [address] [facility] [place] [address] Care Team Providers Care Quality Assurance Auditor Name Role Phone ePdro Hernandez MD Primary Care Provider +1- [phone] Encounter Details Date Type Department Care Team (Late st Contact Info) Description 10/06/2022 Lab Requisition [facility] - DermPath Lab [address] [facility], [place] [address] Radha Navarrete MD [address] [facility] 3 [place] [address] Social History Tobacco Use Types Packs/Day Years Used Date Smoking Tobacco: Former Alcohol Use Standard Drinks/Week Comments Yes 0 (1 standard drink = 0.6 oz pur e alcohol) Comments Unknown Sex and Gender Information Value Date Recorded Sex Assigned at Not on file Legal Sex Female 5:44 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 Gender Identity Not on file Sexual Orientation Not on file documented as of this encounter Plan of Treatment Not on file documented as of this encounter Procedures Procedure Name Priority Date/Time Associated Diagnosis Comments DERMATOPATHOLOGY Routine 10/06/2022 11:0 2 AM CDT documented in this encounter Results * DERMATOPATHOLOGY (10/06/2022 11:02 AM CDT) Case Report Dermatopathology Report Case: [id number] Authorizing Provider: Radha Navarrete MD Collected: 10/06/2022 11:02 AM Ordering Location: [facility] DermPath Lab Received: 10/07/2022 07:35 AM Pathologist: [...] characteristic determined by the Dermatopathology Laboratory at [facility], directed by Dr. Rebeca Dan. These tests need not be, and therefore are not, approved by the [place] Food and Drug Administration. The tests are used for clinical purposes. Billing Codes Specimen Charges Stain Charges 46880 1 3 4:40 PM CDT DERMATOPATHOLOGY LABORATORY Embedded Images 3 4:40 PM CDT DERMATOPATHOLOGY LABORATORY Pathology/Cytolo gy TISSUE SPECIMEN FROM SKIN / Unknown 10/06/2022 11:02 AM CDT 10/07/2022 7:35 AM CDT us Radha Navarrete MD LAB - PATHOLOGY/CYTOLOGY ORD ERABLES Final Result DERMATOPATHOLOGY LABORATORY [facility] - Department of Dermatology [address] [place] [address], [address] [phone] documented in this encounter Visit Diagnoses Not on filedocumented in this encounter Care Teams Quality Assurance Auditor Relationship Specialty Start Date End Date Pedro Hernandez MD [address] [place] [phone] PCP - General 04/30/14 documented as of this encounter
--- OUTSIDE RECORDS SUMMARY | 2024-09-29 08:58 | XMS_ITS | Encounter Summary ---
Author Organization [facility] Health Address [address] [facility] [place] [address] Care Team Providers Care Overage Shortage And Damage Clerk Name Role Phone Pedro Hernandez MD Primary Care Provider +1- [phone] Encounter Details Date Type Department Care Team (Late st Contact Info) Description 02/15/2023 Lab Requisition [facility] - DermPath Lab [address] [facility], [place] [address] Radha Navarrete MD [address] [facility] 3 [place] [address] Social History Tobacco Use Types Packs/Day Years Used Date Smoking Tobacco: Former Alcohol Use Standard Drinks/Week Comments Yes 0 (1 standard drink = 0.6 oz pur e alcohol) Comments Unknown Sex and Gender Information Value Date Recorded Sex Assigned at Not on file Legal Sex Female 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 Gender Identity Not on file Sexual Orientation Not on file documented as of this encounter Plan of Treatment Not on file documented as of this encounter Procedures Procedure Name Priority Date/Time Associated Diagnosis Comments DERMATOPATHOLOGY Routine 02/15/2023 1:50 PM DEDICATED OWNER OPERATOR documented in this encounter Results * DERMATOPATHOLOGY (02/15/2023 1:50 PM DEDICATED OWNER OPERATOR) Case Report Dermatopathology Report Case: [id number] Authorizing Provider: Radha Navarrete MD Collected: 02/15/2023 01:50 PM Ordering Location: [facility] DermPath Lab Received: 02/16/2023 01:07 PM Pathologist: Eugenie Morales MD Specimen: Skin, left leg 4:24 PM [facility] DERMATOPATHOLOGY LABORATORY Final Diagnosis Specimen A. SKIN, left leg: LENTIGINOUS MELANOCYTIC NEVUS, COMPOUND TYPE, IRRITATED AND INFLAMED (D22.72) (see microscopic description) 4:24 PM [facility] DERMATOPATHOLOGY LABORATORY at [address]24 DEDICATED OWNER OPERATOR Clinical History Nevus vs. MM 4:24 PM [facility] DERMATOPATHOLOGY LABORATORY Gross Description Specimen A: Received is one formalin filled container labeled with the patient's name and designated left leg. The specimen consists of a shave biopsy measuring 7x6x1 mm. Jar 0. 4:24 PM [facility] DERMATOPATHOLOGY LABORATORY Microscopic Description Specimen A. SKIN, [...] sections were obtained and reviewed. 4:24 PM [facility] DERMATOPATHOLOGY LABORATORY Disclaimer An external and internal positive and negative controls are appropriate for the histochemical, immunohistochemical and immunofluorescence stain(s) in this case (if any), except where stated explicitly. The performance characteristics of the stain(s) cited in this report were developed and its performance characteristic determined by the Dermatopathology Laboratory at [facility], directed by Dr. Rebeca Dan. These tests need not be, and therefore are not, approved by the [place] Food and Drug Administration. The tests are used for clinical purposes. Billing Codes Specimen Charges Stain Charges 06154 1 41150 1 4:24 PM [facility] DERMATOPATHOLOGY LABORATORY Embedded Images 4:24 PM [facility] DERMATOPATHOLOGY LABORATORY Pathology/Cytolo gy TISSUE SPECIMEN FROM SKIN / Unknown 02/15/2023 1:50 PM DEDICATED OWNER OPERATOR 02/16/2023 1:07 PM DEDICATED OWNER OPERATOR Radha Navarrete MD LAB - PATHOLOGY/CYTOLOGY ORD ERABLES Final Result DERMATOPATHOLOGY LABORATORY [facility] - Department of Dermatology [facility] Specialized Medicine [address] [place] [address], [address] [phone] documented in this encounter Visit Diagnoses Not on filedocumented in this encounter Care Teams Overage Shortage And Damage Clerk Relationship Specialty Start Date End Date Pedro Hernandez MD [address] [place] [phone] PCP - General 04/30/14 documented as of this encounter
--- OUTSIDE RECORDS SUMMARY | 2024-09-29 08:58 | XMS_ITS | Clinical Summary ---
Author Organization [facility] Address [address] [place] [address] Care Team Providers Care Rn Wellness Name Role Phone Unavailable Primary Care Provider [...]
--- OUTSIDE RECORDS SUMMARY | 2024-09-29 08:58 | XMS_ITS | Clinical Summary ---
Author Organization [facility] Address [address] [facility] [address] [place] [address] Care Team Providers Care Warper Creeler Name Role Phone Pedro Hernandez MD Primary Care Provider +1- [phone] Source Comments [facility],non-owned Affiliates and Associated Physician Practices is amultiple site organization consisting of ambulatory clinics and hospital sitesin [place], [place], [place]. This disclosure is being madepursuant to the Care Everywhere program and may not contain all information available regarding this patient. 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 Gender Identity Not on file Sexual Orientation [...] VACCINE (1 of 2) 02/29/2000 COVID-19 VACCINE (1 - 2023-2 5 season) 2023 DEPRESSION SCREENING 02/09/2024 MEDICARE AWV CALENDAR YEAR 2024 INFLUENZA VACCINE (#1) 2024 Respiratory Syncytial Virus (RSV) Vaccine Pt: [...] on patient's age to complete this topic Insurance MEDICARE [facility] MANAGED MEDICARE ADV SELF PAY NO INSURANCE Member Subscriber Plan / Payer (Ef fective for All Dates) Name:Belle Foster Member ID:Not on file Relation to Subscriber:Not on file Name:BELLE FOSTER Subscriber ID:Not on file Address: [address] [place] [address] Payer ID:Not on file Group ID:Not on file Type:Self Pay Address: [facility] MANAGED MEDICARE ADV SELF PAY NO INSURANCE Member Subscriber Plan / Payer (Ef fective for All Dates) Name:Belle Foster Member ID:Not on file Relation to Subscriber:Not on file Name:BELLE FOSTER Subscriber ID:Not on file Address: [address] [place] [address] Payer ID:Not on file Group ID:Not on file Type:Self Pay Address: [facility] MANAGED MEDICARE ADV MEDICARE [facility] MEDICARE [facility] MEDICARE [facility] MEDICARE [employer] [place] [employer] [place] [facility]IC[facility] MEDICARE [facility] MEDICARE [facility] Care Teams Warper Creeler Relationship Specialty Start Date End Date Pedro Hernandez MD [address] [place] [phone] PCP - General 04/30/14
--- OUTSIDE RECORDS SUMMARY | 2024-09-29 08:58 | XMS_ITS | Encounter Summary ---
Author Organization [facility] Health Address [address] [place] [address] Care Team Providers Care Clerical Support Name Role Phone Pedro Hernandez MD Primary Care Provider +1- [phone] Encounter Details Date Type Department Care Team (Late st Contact Info) Description 11/24/2018 Lab Requisition [facility] DermPath Lab [address] [facility], [place] [address] Radha Navarrete MD [address] [facility] 3 [place] [address] Social History Tobacco Use Types Packs/Day Years Used Date Smoking Tobacco: Former Alcohol Use Standard Drinks/Week Comments Yes 0 (1 standard drink = 0.6 oz pur e alcohol) Comments Unknown Sex and Gender Information Value Date Recorded Sex Assigned at Not on file 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 Gender Identity Not on file Sexual Orientation Not on file documented as of this encounter Plan of Treatment Not on file documented as of this encounter Procedures Procedure Name Priority Date/Time Associated Diagnosis Comments DERMATOPATH TECHNICAL REPORT Routine 11/24/2018 12:00 AM CDT documented in this encounter Results * DERMATOPATH TECHNICAL REPORT (11/24/2018 12:00 AM CDT) Case Report Dermatopathology Report Case: [id number] Authorizing Provider: Radha Navarrete MD Collected: 11/24/2018 12:00 AM Ordering Location: [facility] DermPath Lab Received: 11/24/2018 11:32 AM Pathologist: Lavon Dan MD Specimen: Skin, right back 4:52 PM CDT DERMATOPATHOLOGY LABORATORY Addendum 2 At the request of the diagnosing physician, the technical component for HMB-45 was performed by [facility] Dermatopathology Laboratory. 4:52 PM CDT DERMATOPATHOLOGY LABORATORY Addendum electronically signed by Lavon Dan MD on 12/01/2018 at 1652 CDT Addendum 1 At the request of the diagnosing physician, the technical component for MART-1/Melan A was performed by [facility] Dermatopathology Laboratory. 4:52 PM CDT DERMATOPATHOLOGY LABORATORY Addendum electronically signed by Lavon Dan MD on 11/29/2018 at 1755 CDT Clinical History LPLK vs BCC. [place] scaly papule. 4:52 PM CDT DERMATOPATHOLOGY LABORATORY Gross Description Specimen A: Received is one formalin filled container labeled with the patient's name and designated right back. The specimen consists of a shave measuring [id number]. Jar 0. [facility] Dermatopathology Laboratory performed the technical component [...] characteristic determined by the Dermatopathology Laboratory at [facility], directed by Dr. Rebeca Dan. These [...] DERMATOPATHOLOGY LABORATORY [facility] - Department of Dermatology [address] [place] [address], 5th Floor Lab [address] [phone] documented in this encounter Visit Diagnoses Not on filedocumented in this encounter Care Teams Clerical Support Relationship Specialty Start Date End Date Pedro Hernandez MD [address] [place] [phone] PCP - General 04/30/14 documented as of this encounter
--- OUTSIDE RECORDS SUMMARY | 2024-09-29 08:58 | XMS_ITS | Encounter Summary ---
Author Organization [facility] Health Address [address] [facility] [place] [address] Care Team Providers Care Optical Model Maker And Tester Name Role Phone Pedro Hernandez MD Primary Care Provider +1- [phone] Encounter Details Date Type Department Care Team (Late st Contact Info) Description 04/13/2024 Lab Requisition [facility] - DermPath Lab [address] [facility], [place] [address] Radha Navarrete MD [address] [facility] 3 [place] [address] Social History Tobacco Use Types Packs/Day Years Used Date Smoking Tobacco: Former Alcohol Use Standard Drinks/Week Comments Yes 0 (1 standard drink = 0.6 oz pur e alcohol) Comments Unknown Sex and Gender Information Value Date Recorded Sex Assigned at Not on file Legal Sex Female 5:44 PM OPTICAL EFFECTS LINE UP PERSON Gender Identity Not on file Sexual Orientation Not on file documented as of this encounter Plan of Treatment Not on file documented as of this encounter Procedures Procedure Name Priority Date/Time Associated Diagnosis Comments DERMATOPATHOLOGY Routine 04/13/2024 10:0 4 AM OPTICAL EFFECTS LINE UP PERSON documented in this encounter Results * DERMATOPATHOLOGY (04/13/2024 10:04 AM OPTICAL EFFECTS LINE UP PERSON) Case Report Dermatopathology Report Case: [id number] Authorizing Provider: Radha Navarrete MD Collected: 04/13/2024 10:04 AM Ordering Location: [facility] - Received: 04/14/2024 10:21 AM DermPath Lab [...] characteristic determined by the Dermatopathology Laboratory at [facility], directed by Dr. Rebeca Dan. These tests need not be, and therefore are not, approved by the [place] Food and Drug Administration. The tests are used for clinical purposes. Billing Codes Specimen Charges Stain Charges 88421 1 1:41 PM CDT DERMATOPATHOLOGY LABORATORY Embedded Images 1:41 PM CDT DERMATOPATHOLOGY LABORATORY Pathology/Cytolo gy TISSUE SPECIMEN FROM SKIN / Unknown 04/13/2024 10:04 AM OPTICAL EFFECTS LINE UP PERSON 04/14/2024 10:21 AM OPTICAL EFFECTS LINE UP PERSON us Radha Navarrete MD LAB - PATHOLOGY/CYTOLOGY ORD ERABLES Final Result DERMATOPATHOLOGY LABORATORY [facility] - Department of Dermatology [address], [address] [phone] documented in this encounter Visit Diagnoses Not on filedocumented in this encounter Care Teams Optical Model Maker And Tester Relationship Specialty Start Date End Date Pedro Hernandez MD [facility] [place] [phone] PCP - General 04/30/14 documented as of this encounter
--- OUTSIDE RECORDS SUMMARY | 2024-09-29 08:58 | XMS_ITS | Clinical Summary ---
Author Organization [facility] Address [address] [place] [address] Phone Care Team Providers Care Dispatcher Motor Vehicle Name Role Phone Pedro Hernandez MD Primary Care Provider +1- [phone] Allergies No known active allergies Medications multivitamin,tx -iron-ca-min (THERA-M) 27-0.4 mg Tablet Take 1 Tablet by mouth daily. 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
--- OUTSIDE RECORDS SUMMARY | 2024-09-29 08:58 | XMS_ITS | Encounter Summary ---
Author Organization [facility] Health Address [address] [facility] [place] [address] Care Team Providers Care Medical Support Assistant Name Role Phone Pedro Hernandez MD Primary Care Provider +1- [phone] Encounter Details Date Type Department Care Team (Late st Contact Info) Description 01/25/2020 Lab Requisition [facility] DermPath Lab [address] [facility], [place] [address] Radha Navarrete MD [address] [facility] 3 [place] [address] Social History Tobacco Use Types Packs/Day Years Used Date Smoking Tobacco: Former Alcohol Use Standard Drinks/Week Comments Yes 0 (1 standard drink = 0.6 oz pur e alcohol) Comments Unknown Sex and Gender Information Value Date Recorded Sex Assigned at Not on file Legal Sex Female 5:44 PM MULTILITH OPERATOR Gender Identity Not on file Sexual Orientation Not on file documented as of this encounter Plan of Treatment Not on file documented as of this encounter Procedures Procedure Name Priority Date/Time Associated Diagnosis Comments DERMATOPATHOLOGY Routine 01/24/2020 12:0 0 AM MULTILITH OPERATOR documented in this encounter Results * DERMATOPATHOLOGY (01/24/2020 12:00 AM MULTILITH OPERATOR) Case Report Dermatopathology Report Case: [id number] Authorizing Provider: Radha Navarrete MD Collected: 01/24/2020 12:00 AM Ordering Location: [facility] DermPath Lab Received: 01/25/2020 10:10 AM Pathologist: Lavon Dan MD Specimen: Skin, left FA 0 12:49 PM MULTILITH OPERATOR DERMATOPATHOLOGY LABORATORY Final Diagnosis Specimen A. SKIN, left FA: HYPERPLASTIC (HYPERTROPHIC) ACTINIC KERATOSIS (L57.0) 0 12:49 PM [facility] DERMATOPATHOLOGY LABORATORY at 1249 MULTILITH OPERATOR Clinical History Plain papule, ISK vs BCC. 0 12:49 PM [facility] DERMATOPATHOLOGY LABORATORY Gross Description Specimen A: Received is one formalin filled container labeled with the patient's name and designated left FA. The specimen consists of a shave measuring [id number]. Jar 0. 0 12:49 PM [facility] DERMATOPATHOLOGY LABORATORY Microscopic Description Specimen A. SKIN, left FA: There is hyperkeratosis alternating with parakeratosis. There is epidermal hyperplasia with disorderly maturation of keratinocytes with nuclear pleomorphism confined to the lower half of the epidermis. 0 12:49 PM [facility] DERMATOPATHOLOGY LABORATORY Disclaimer An [...] purposes. Billing Codes Specimen Charges Stain Charges 12332 1 0 12:49 PM [facility] DERMATOPATHOLOGY LABORATORY Embedded Images 0 12:49 PM [facility] DERMATOPATHOLOGY LABORATORY Pathology/Cytolog y TISSUE SPECIMEN FROM SKIN / Unknown 01/24/2020 01/25/2020 10:10 AM [facility] us Radha Navarrete MD LAB - PATHOLOGY/CYTOLOGY ORD ERABLES Final Result DERMATOPATHOLOGY LABORATORY [facility] - Department of Dermatology [facility] Medicine [address] [place] [address], 3rd [place] [address], [facility] [phone] documented in this encounter Visit Diagnoses Not on filedocumented in this encounter Care Teams Medical Support Assistant Relationship Specialty Start Date End Date Pedro Hernandez MD [facility] [place] [phone] PCP - General 04/30/14 documented as of this encounter
== END 2024-09-29 08:55 | disposition home or self-care (01) ==
LOC: ANHAUDIO 08:54
PROVIDERS: PCP Family Medicine; Visit Provider Otolaryngology
DX: H93.13 Tinnitus, bilateral (principal); H90.3 Sensorineural hearing loss, bilateral
CPT/HCPCS: 92557; 92567